=== PATIENT | male | born 1975 | race Caucasian/White ===

== ENCOUNTER 2020-09-14 09:07 | Emergency (ER) | payer OTHER, SELFPAY ==
[2020-09-14 09:16] VITALS: BP 157/92; PULSE 105; RESP 16; TEMP 36.8; O2SAT 99
== END 2020-09-14 09:20 | disposition left against medical advice (07) ==
LOC: EXPBETH 09:14
PROVIDERS: Emergency Provider Nurse Practitioner
DX: Z53.21 Procedure and treatment not carried out due to patient leaving prior to being seen by health care provider (principal)
CPT/HCPCS: 99199

== ENCOUNTER 2024-04-02 13:18 | Emergency (ER) | payer OTHER, SELFPAY ==
[2024-04-02 13:29] VITALS: BP 152/86; PULSE 111; RESP 16; TEMP 36.6; O2SAT 99
--- NOTE | 2024-04-02 14:16 | ED.GENADULT ---
HPI - General Adult General Chief complaint: Urogenital-Male Stated complaint: STD Test Time Seen by Provider: 04/02/24 14:16 Source: patient, RN notes reviewed and old records reviewed Mode of arrival: ambulatory Limitations: no limitations History of Present Illness HPI narrative: 48-year-old male to Express Care requesting STI testing. Patient states that his partner informed him yesterday that she tested positive for Trichomonas. Patient denies dysuria, penile discharge, fever, abdominal pain, scrotal pain, any other complaint at this time. Patient in no acute distress. Related Data Allergies Allergy/AdvReac Type Severity Reaction Status Date / Time No Known Allergies Allergy Verified 04/02/24 14:27 Review of Systems Review of Systems: All systems reviewed & are unremarkable except as noted in HPI and below Constitutional: Constitutional: Reports no additional constitutional complaints Eyes: Eyes: Reports no additional eye complaints ENT: Reports system reviewed and no additional complaints, except as documented Cardiovascular: Cardiovascular: Reports no additional cardiovascular complaints, Denies chest pain and Denies dyspnea Respiratory: Respiratory: Reports no additional respiratory complaints, Denies cough and Denies dyspnea Genitourinary: Genitourinary: Reports as per HPI, Denies hematuria, Denies difficulty with ejaculations, Denies genital lesions, Denies genital pain, Denies dysuria, Denies flank pain, Denies penile discharge, Denies testicular pain, Denies urinary frequency, Denies urinary hesitancy and Denies urinary urgency Musculoskeletal: Musculoskeletal: Reports no additional musculoskeletal complaints Neurologic: Reports system reviewed and no additional complaints, except as documented Psychiatric: Psychiatric: Reports no additional psychiatric complaints PMFSH Comments At the time of my signature, I reviewed and agree with the nursing past medical, surgical, social, and family history. There is no relevant family history pertinent to the patient complaint. Exam Const: General: cooperative, healthy appearing, comfortable, no acute distress, alert and well nourished Nutritional Appearance: well nourished Orientation/consciousness: patient oriented x3 Limitations: no limitations HENMT: Head: normal to inspection Ears: external ears normal Face/Nose/Sinus: Normal external nose present, Normal nares present, normal facial exam, No erythema and No edema Face and sinus: normal facial exam, no erythema and no edema Mouth: Yes Normal oral and palatal mucosa present Eyes: General: appearance normal, both eyes and all related structures Neck: Neck: normal visual inspection, full ROM and no meningeal signs Lymphatic: no lymphadenopathy noted and no lymphedema noted Chest: Chest palpation & inspection: normal inspection of the chest Resp: Effort & Inspection: normal respiratory effort and able to speak in complete sentences Cardio: Jugular venous distension: no JVD Rate: regular rate Rhythm: regular rhythm Back/Spine/Pelvis: Cervical Spine: cervical ROM normal Skin: General skin exam: normal color, no rashes or lesions noted and turgor normal Neuro: General: patient oriented x3, gait normal, moves all extremities and no meningeal signs Speech: normal speech Gait exam (Neuro): Normal gait present Extrem: General: normal to inspection and full ROM Psych: Appearance: grossly normal and well kempt Course Course Emergency Course: Some parts of this dictation were generated by voice recognition software and may contain typographical and/or grammatical inaccuracies. Level of Care: Express Care Visit Vital Signs Vital signs: Vital Signs Temperature 36.6 C 04/02/24 13:29 Pulse Rate 111 H 04/02/24 13:29 Respiratory Rate 16 04/02/24 13:29 Blood Pressure 152/86 H 04/02/24 13:29 Pulse Oximetry 99 04/02/24 13:29 Oxygen Delivery Room Air 04/02/24 13:29 Temperatur
[2024-04-02 20:04] LABS: Trichomonas Vag PCR NOT DETECTED (NOT DETECTE)
[2024-04-02 20:28] LABS: Chlamydia trachomatis NOT DETECTED (NOT DETECTE); Neisseria gonorrhoeae PCR NOT DETECTED (NOT DETECTE)
== END 2024-04-02 14:34 | disposition home or self-care (01) ==
PROVIDERS: Emergency Provider Nurse Practitioner Family; PCP Internal Medicine Geriatric Medicine
DX: Z20.2 Contact with and (suspected) exposure to infections with a predominantly sexual mode of transmission (principal); K21.9 Gastro-esophageal reflux disease without esophagitis; E11.9 Type 2 diabetes mellitus without complications
CPT/HCPCS: 87491; 87591; 87661; 99213; G0463

== ENCOUNTER 2025-01-21 20:19 | Emergency (ER) | payer OTHER, SELFPAY ==
--- NOTE | ~2025-01-21 | XR_ITS ---
XR hand RT min 3V Ordering provider: Jabari Marin MD History: . index and ring finger injury . Comparison: None. FINDINGS: BONES: Fracture in the tip of the distal phalanx of the second finger. JOINT SPACES: Osteoarthritic changes of the first carpometacarpal joint. SOFT TISSUES: Soft tissue swelling over the distal phalanx of the second finger. IMPRESSION: Fracture of the distal phalanx of the second finger Reviewed, dictated and finalized at location A.
[2025-01-21 20:20] VITALS: BP 179/99; PULSE 100; RESP 20; TEMP 36.4; O2SAT 98
--- OUTSIDE RECORDS SUMMARY | 2025-01-21 20:21 | XMS_ITS | Referral Summary ---
Author Organization [facility] Address [address] [place] [address] Care Team Providers Care Wire Inserter Name Role Phone Darin Hopson MD Primary Care Provider + Encounters Date Type Department Care Team Description 12/31/2024 12:30 PM CDT Lab [address] [id number] from Last 3 Months Allergies No known active allergies Medications omeprazole (PriLOSEC) 20 mg capsule Take 1 capsule (20 mg total) by mouth daily Active alcohol swabs pads, medicated Test daily before all meals/snacks and once before bedtime. 1 each 0 Active BD Insulin Syringe Ultra-Fine 1 mL 31 gauge x 5/16 syringe 1 Package as needed (blood sugar) 1 each 0 Active ibuprofen (ADVIL,MOTRIN) 600 mg tablet Take 1 tablet (600 mg total) by mouth every 8 (eight) hours as needed for pain 21 tablet 1 Active escitalopram (LEXAPRO) 20 mg tablet Take 20 mg by mouth daily 1 Active Ozempic 1 mg/dose (2 mg/1.5 mL) pen injector injection Inject 2 mg under the skin once a week Sundays 1 Active metFORMIN (GLUCOPHAGE) 1,000 mg tablet TAKE 1 (ONE) TABLET BY MOUTH 2 TIMES DAILY REASONS: TYPE 2 DIABETES 2 Active Ozempic 2 mg/dose (8 mg/3 mL) pen injector injection Inject 2 mg under the skin once a week 3 Active acetaminophen- codeine (TYLENOL with CODEINE #3) 300-30 mg per tabletIndicati ons:Acute right otitis media,Acute infective otitis externa of right ear Take 1-2 tablets by mouth every 6 (six) hours as needed for pain P.r.n. pain not relieved by naproxen alone. Take with food. Collaborating physician Cruz Cain MD 10 tablet 3 Active Additional Information Patient not taking.Reported on 02/23/2024 neomycin-polym yxin-HC (CORTISPORIN) 3.5-10,000-1 mg/mL-unit/mL- % otic suspensionIndi cations:Acute infective otitis externa of right ear Administer 4 drops into the right ear 4 (four) times a day Collaborating physician Cruz Cain MD 10 mL 1 3 Active Additional Information Patient not taking.Reported on 02/23/2024 naproxen (NAPROSYN) 500 mg tablet Take 1 tablet (500 mg total) by mouth 2 (two) times a day with meals 30 tablet 4 Active Additional Information Patient not taking.Reported on 02/23/2024 lidocaine (LIDODERM) 5 % Place 1 patch on the skin daily for 14 days Remove & discard patch within 12 hours or as directed by MD. 14 patch 4 Active methocarbamoL (ROBAXIN) 500 mg tablet Take 1 tablet (500 mg total) by mouth 2 (two) times a day 20 tablet 4 Active Additional Information Patient not taking.Reported on 02/23/2024 HYDROcodone-ac etaminophen (NORCO) 5-325 mg per tabletIndicati ons:Pain Take 1 tablet by mouth every 6 (six) hours as needed for pain 12 tablet 4 Active Active Problems Problem Noted Date Diagnosed Date Acute right otitis media 05/14/2023 Acute infective otitis externa of right ear 04/17 Sebaceous cyst 02/25/2022 Overview (02/25/2022): Added automatically from request for surgery [id number] Pyogenic inflammation of bone 05/07/2021 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 The patient on review elected undergo a cortisone injection today and tolerated the procedure well. He may find Voltaren gel helpful is a counter measure for inflammation locally the. He should avoid for mattresses as well. Degeneration of lumbar intervertebral disc 03/15 Assessment & Plan (03/15/2021 11:24 AM CDT): Patient has narrowing the L5-S1 disc space which is not uncommon. He does not have radiculopathy or myelopathy. The patient may need further workup if he develops progressive pain numbness loss of bowel or bladder function. For the time being the patient should avoid heavy lifting and may find a back support helpful. Nondisplaced fracture (avuls ion) of medial epicondyle of left humerus, initial encounter for closed fracture 05/18/2020 Asthma 03/29/2013 Attention-deficit hyperactivity disorder 013 Bipolar I disorder, most recent episode depresse d 03/29/2013 Generalized anxiety disorder 03/29/2013 Persistent insomnia 03/29/2013 Social History Tobacco Use Types Packs/Day Years Used Date Smoking Tobacco: Never Smokeless Tobacco: Never Alcohol Use Standard Drinks/Week Comments Not Currently 0 (1 standard drink = 0.6 oz pur e alcohol) AUDIT-C Answer Date Recorded Q1: How often do you have a drink containing alc ohol? Never 03/07/2022 Average Number of Drinks Not on file 022 Frequency of Binge Drinking Not on file 02/14 Overall Financial Resource Strain (CARDIA) Answe r Date Recorded How hard is it for you to pa y for the very basics like food, housing, medical care, and heating? Not hard at all 05/08/2021 Hunger Vital Sign Answer Date Recorded Within the past 12 months, y ou worried that your food would run out before you got the money to buy more. Never true 05/08/20 21 Within the past 12 months, t he food you bought just didn't last and you didn't have money to get more. Never true 05/08/2021 PRAPARE - Transportation Answer Date Re corded In the past 12 months, has l ack of transportation kept you from medical appointments or from getting medications? No 04/16 In the past 12 months, has l ack of transportation kept you from meetings, work, or from getting things needed for daily living? No 05/08/2021 Personal Safety Answer Date Recorded Have you ever been in or are you currently in a harmful physical or emotional relationship or is someone making you feel afraid or unsafe? Denies 03/10/2024 Sex and Gender Information Value Date Recorded Sex Assigned at Not on file Legal Sex Male 1:21 PM [employer] Gender Identity Not on file Sexual Orientation Not on file Last Filed Vital Signs Vital Sign Reading Time Taken Comments Blood Pressure 163/109 03/11/2024 1:24 AM CDT Pulse 102 03/11/2024 1:24 AM CDT Temperature 37.2 C (98.9 F) 03/10/2024 7:30 PM CDT Respiratory Rate 18 03/10/2024 7:30 PM CDT Oxygen Saturation 96% 03/11/2024 1:24 AM CDT Inhaled Oxygen Concentration - - Weight 104.3 kg (230 lb) 03/10/2024 7:30 PM CDT Height 195.6 cm (6' 5 ) 03/10/2024 7:30 PM CDT Body Mass Index 27.27 03/10/2024 7:30 PM CDT Plan of Treatment Not on file Procedures Procedure Name Priority Date/Time Associated Diagnosis Comments EGFR Routine 12/31/2024 12:31 PM CDT DIFFERENTIAL AUTO Routine 12/31/2024 12: 31 PM CDT VITAMIN D 25 HYDROXY Routine 12/31/2024 12:31 PM CDT TSH Routine 12/31/2024 12:31 PM CDT TOTAL TESTOSTERONE Routine 12/31/2024 12 :31 PM CDT HEMOGLOBIN A1C Routine 12/31/2024 12:31 PM CDT CBC WITH AUTO DIFFERENTIAL Routine 12/31/2024 12:31 PM CDT LIPID PANEL Routine 12/31/2024 12:31 PM CDT COMPREHENSIVE METABOLIC PANEL Routine 12/31/2024 12:31 PM CDT URINALYSIS, MACROSCOPIC Routine 12/31/2024 12:31 PM CDT from Last 3 Months Results * eGFR (12/31/2024 12:31 PM CDT) eGFR >90 >=60 mL/min/1. 73 m2 Comment: Interpretive Data Reference Interval Normal >/= 90 mL/min/1.73m2 Mildly decreased* 60 - 89 mL/min/1.73m2 Mildly to moderately decreased 45 - 59 mL/min/1.73m2 Moderately to severely decreased 30 - 44 mL/min/1.73m2 Severely decreased 15 - 29 mL/min/1.73m2 Kidney Failure < 15 mL/min/1.73m2 *Relative to young adult level Estimated glomerular filtration rate is determined by the 2020 CKD-EPI equation recommended by the National Kidney Foundation (A Unifying Approach to GFR Estimation: Recommendations of the NKF-ASK Task Force on Reassessing the Inclusion of Race in Diagnosing Kidney Disease, JASN 2020). The CKD-EPI equation should not be used for patients with unstable renal function and has not been validated in children and those over 70. Current interpretive data was last reviewed 2021. Blood 12/31/2024 12:3 1 PM CDT 12/31/2024 6:58 PM CDT us Darin Hopson MD LAB BLOOD ORDERABLES Fin al Result [facility] [id number] [address] Department [place] [address] * Differential, auto (12/31/2024 12:31 PM CDT) Neutrophil abs 4.89 1.50 - 6.50 K/cumm Imm gran abs 0.02 0.00 - 0.10 K/cumm [facility] Lymphocyte abs 0.92 0.80 - 3.30 K/cumm [facility] Monocyte abs 0.55 0.20 - 0.80 K/cumm [facility] Eosinophil abs 0.10 0.00 - 0.50 K/cumm [facility] Basophil abs 0.05 0.00 - 0.10 K/cumm [facility] Neutrophil pct 74.9 % [facility] Comment: Interpretive Data Percent cell count reference ranges are not reported, since discordance with absolute values may lead to misinterpretation of CBC data. Current Interpretive Data was last revised on 2017. Imm gran pct 0.3 % [facility] Comment: Interpretive Data Percent cell count reference ranges are not reported, since discordance with absolute values may lead to misinterpretation of CBC data. Current Interpretive Data was last revised on 2017. Lymphocyte pct 14.1 % [facility] Comment: Interpretive Data Percent cell count reference ranges are not reported, since discordance with absolute values may lead to misinterpretation of CBC data. Current Interpretive Data was last revised on 2017. Monocyte pct 8.4 % [facility] Comment: Interpretive Data Percent cell count reference ranges are not reported, since discordance with absolute values may lead to misinterpretation of CBC data. Current Interpretive Data was last revised on 2017. Eosinophil pct 1.5 % [facility] Comment: Interpretive Data Percent cell count reference ranges are not reported, since discordance with absolute values may lead to misinterpretation of CBC data. Current Interpretive Data was last revised on 2017. Basophil pct 0.8 % [facility] Comment: Interpretive Data Percent cell count reference ranges are not reported, since discordance with absolute values may lead to misinterpretation of CBC data. Current Interpretive Data was last revised on 2017. Blood 12/31/2024 12:3 1 PM CDT 12/31/2024 12:31 PM CDT Darin Hopson MD LAB BLOOD ORDERABLES Fin al Result Performing Organization Address City/State/[facility] Co de Phone Number CERKRYSTA SHI [address] [address] Department [place] [address] * (ABNORMAL) Urinalysis, macroscopic Urine (12/31/2024 12:31 PM CDT) Color, ur Yellow Yellow Clarity, ur Clear Clear [facility] Specific gravity, ur 1.024 1.003 - 1.030 [facility] pH, urine 5.5 [facility] Comment: Interpretive Data U rine pH is affected by diet, medications, systemic acid-base disturbances, and renal tubular function. pH may affect urinary stone formation. For example, urine pH below 6.0 may help reduce the tendency for calcium phosphate stones and pH greater than 6.0 may reduce the tendency for uric acid stone formation. Source: [facility] Current Interpretive Data was last revised on 2017 Protein, ur ql Negative Negative [facility] Glucose, ur ql 4+(A) Negative [facility] Ketones, ur 1+(A) Negative [facility] Bilirubin, ur Negative Negative [facility] Blood, ur Negative Negative [facility] Urobilinogen, ur <2.0 <2.0 mg/dL [facility] Nitrite, ur Negative Negative [facility] Leukocyte esterase, ur Negative Negative [facility] Urine 12/31/2024 12:3 1 PM CDT 12/31/2024 12:32 PM CDT us Darin Hopson MD LAB MICROBIOLOGY - GENER AL ORDERABLES Final Result Performing Organization Address [facility] de Phone Number [facility] SHI [phone] [address] Department [place] [address] * CBC with auto differential (12/31/2024 12:31 PM CDT) WBC 6.53 3.80 - 9.90 K/cumm Hgb 16.9 13.0 - 17.5 g/dL [facility] Hct 50.0 38.9 - 50.3 % [facility] Plt 285 150 - 400 K/cumm [facility] MPV 9.4 9.1 - 12.3 fL [facility] RBC 5.27 4.30 - 5.80 M/cumm [facility] MCV 94.9 81.3 - 96.4 fL [facility] MCH 32.1 27.1 - 33.3 pg [facility] MCHC 33.8 32.3 - 35.7 g/dL [facility] RDW CV 12.4 11.1 - 14.9 % [facility] RDW SD 42.9 35.7 - 48.1 fL [facility] NRBC abs 0.00 0.00 - 0.01 K/cumm [facility] Blood 12/31/2024 12:3 1 PM CDT 12/31/2024 12:31 PM CDT Darin Hopson MD LAB BLOOD ORDERABLES Fin al Result Performing Organization Address [facility] Co de Phone Number [facility] SHI [phone] [address] [facility] [place] [address] * (ABNORMAL) Vitamin D 25 hydroxy (12/31/2024 12:31 PM CDT) Vitamin D 25-OH 24(L) 30 - 80 ng/mL Blood 12/31/2024 12:3 1 PM CDT 12/31/2024 12:32 PM CDT Darin Hopson MD LAB BLOOD ORDERABLES Fin al Result Performing Organization Address [facility] Co de Phone Number LYNNE YURIDIA [address] [address] [facility] [place] [address] * TSH (12/31/2024 12:31 PM CDT) Thyroid Stimulating Hormone 1.35 0.30 - 4.20 mcIUnit/mL Blood 12/31/2024 12:3 1 PM CDT 12/31/2024 12:31 PM CDT Darin Hopson MD LAB BLOOD ORDERABLES Fin al Result Performing Organization Address [facility] Co de Phone Number LYNNE [address] [address] [facility] [place] [address] * Total testosterone (12/31/2024 12:31 PM CDT) Testosterone 311 249 - 836 ng/dL Blood 12/31/2024 12:3 1 PM CDT 12/31/2024 12:31 PM CDT Darin Hopson MD LAB BLOOD ORDERABLES Fin al Result Performing Organization Address [facility] Phone Number L[facility] [phone] [address] [facility] [place] [address] * (ABNORMAL) Hemoglobin A1c (12/31/2024 12:31 PM CDT) Hgb A1C 10.9(H) 4.0 - 5.6 % Estimated Average Glucose 266 mg/dL [facility]I Comment: The ADA recommends reporting an estimated Average Glucose (eAG) with all Hemoglobin A1c results using the equation derived from a study of 507 normal and diabetic adults. Minority populations were underrepresented and children were not included. (Diabetes Care 31:0235-6073, 2008). The eAG is not equivalent to a fasting glucose. Blood 12/31/2024 12:3 1 PM CDT 12/31/2024 12:31 PM CDT Darin Hopson MD LAB BLOOD ORDERABLES Fin al Result Performing Organization Address [facility] de Phone Number L[facility]NE YURIDIA [phone] [address] [facility] [place] [address] * Lipid panel (12/31/2024 12:31 PM CDT) Cholesterol 187 30 - 199 mg/dL Comment: Interpretive Data Ages < or = 19 years Acceptable: <170 mg/dL Borderline high: 170-199 mg/dL High: >or= 200 mg/dL Ages > or = 20 years Desirable: <200 mg/dL Borderline high: 200-239 mg/dL High: >or= 240 mg/dL Literature References: 1. Expert Panel on Integrated Guidelines for Cardiovascular Health and Risk Reduction in Children and Adolescents. Pediatrics 2011;128:S213 2. NCEP Expert Panel. Circulation 2004;110:227 Current Interpretive Data was last revised on 2018. Triglycerides 87 <=149 mg/dL [facility] Comment: Interpretive Data Ages < or = 9 years Acceptable: <75 mg/dL Borderline high: 75-99 mg/dL High: >or= 100 mg/dL Ages 10 to 20 years Acceptable: <90 mg/dL Borderline high: 90-129 mg/dL High: >or= 130 mg/dL Ages > or = 20 years Desirable: <150 mg/dL Borderline high: 150-199 mg/dL High: 200-499 mg/dL Very high: >or= 499 mg/dL Literature References: 1. Expert Panel on Integrated Guidelines for Cardiovascular Health and Risk Reduction in Children and Adolescents. Pediatrics 2011;128:S213 2. NCEP Expert Panel. Circulation 2004;110:227 Current Interpretive Data was last revised on 2018. HDL 61 >=40 mg/dL [facility] Comment: Interpretive Data Ages < or = 19 years Acceptable: >45 mg/dL Borderline low: 40-45 mg/dL Low: <40 mg/dL Ages > or = 20 years Desirable: >or= 60 mg/dL Low: <40 mg/dL Literature References: 1. Expert Panel on Integrated Guidelines for Cardiovascular Health and Risk Reduction in Children and Adolescents. Pediatrics 2011;128:S213 2. NCEP Expert Panel. Circulation 2004;110:227 Current Interpretive Data was last revised on 2018. LDL, calculated 110 <=129 mg/dL [facility] Comment: Interpretive Data Ages < or = 19 years Acceptable: <110 mg/dL Borderline high: 110-129 mg/dL High: >or= 130 mg/dL Ages > or = 20 years Optimal: <100 mg/dL Near optimal: 100-129 mg/dL Borderline high: 130-159 mg/dL High: >160 mg/dL Calculated using the Long LDL-C estimating equation. This equation was implemented on 2024. Prior to this date LDL-C was estimated using the Friedewald equation. Literature References: 1. Expert Panel on Integrated Guidelines for Cardiovascular Health and Risk Reduction in Children and Adolescents. Pediatrics 2011;128:S213 2. NCEP Expert Panel. Circulation 2004;110:227 3. Alves M et al. COURTNEY Cardiol. 2019January 13;5(5):540-548. doi: 10.1001/jamacardio.2020.0013 Current Interpretive Data was last revised on 2024. Non-HDL Cholesterol 126 mg/dL [facility] Comment: Interpretive Data Ages < or = 19 years Acceptable: <120 mg/dL Borderline high: 120-144 mg/dL High: >145 mg/dL Ages > or = 20 years When triglycerides are >200 mg/dL, Non-HDL cholesterol is a secondary target of therapy with treatment goals that are 30 mg/dL greater than the LDL cholesterol target. Literature References: 1. Expert Panel on Integrated Guidelines for Cardiovascular Health and Risk Reduction in Children and Adolescents. Pediatrics 2011;128:S213 2. NCEP Expert Panel. Circulation 2004;110:227 Current Interpretive Data was last revised on 2018. Chol/HDL ratio 3 [facility] Blood 12/31/2024 12:3 1 PM CDT 12/31/2024 12:31 PM CDT us Darin Hopson MD LAB BLOOD ORDERABLES Fin al Result [facility] [address] [address] Department [place] [address] * (ABNORMAL) Comprehensive metabolic panel (12/31/2024 12:31 PM CDT) Sodium 134(L) 135 - 145 mmol/L Potassium, pl 4.2 3.3 - 4.9 mmol/L [facility] Chloride 99 97 - 110 mmol/L [facility] CO2 22 22 - 32 mmol/L [facility] Anion gap 13 2 - 15 mmol/L [facility] BUN 10 6 - 25 mg/dL [facility] Creatinine 0.60(L) 0.80 - 1.30 mg/dL [facility] Glucose 289(H) 70 - 199 mg/dL [facility] Comment: Interpretive Data Fasting glucose >/= 126 mg/dl is diagnostic for diabetes. Fasting is defined as no caloric intake for at least 8 hours. Fasting glucose between 100 mg/dl to 125 mg/dl is diagnostic of prediabetes. In a patient with classic symptoms of hyperglycemia or hyperglycemic crisis, a random glucose >/= 200 mg/dl is diagnostic for diabetes. In the absence of unequivocal hyperglycemia, results should be confirmed by repeat testing. The classification and Diagnosis of Diabetes Diabetes Care 202; 46: S19-S40. Current interpretive data was last revised 2022. Calcium 9.7 8.5 - 10.3 mg/dL [facility] Bilirubin, total 1.0 0.1 - 1.2 mg/dL [facility] Protein, pl 7.1 6.5 - 8.5 g/dL [facility] Albumin 4.3 3.5 - 5.0 g/dL [facility] Alk phos 50 40 - 130 Units/L [facility] ALT 30 7 - 55 Units/L [facility] AST 23 10 - 50 Units/L [facility] Blood 12/31/2024 12:3 1 PM CDT 12/31/2024 12:31 PM CDT Darin Hopson MD LAB BLOOD ORDERABLES [facility] al Result [facility] [address] [address] Department of Laboratories [place] [phone] from Last 3 Months Insurance [employer] SIG [id number] [place] [phone] [place] [address] Advance Directives For more information, please contact: [phone] * Full Code (Latest Code Status on File) Date Activated Date Inactivated Comments 05/08/2021 2:43 AM 05/09/2021 6:43 PM Care Teams Wire Inserter Relationship Specialty [place] [address] [address] [facility] [place] [address] PCP - General 12/26/16
--- OUTSIDE RECORDS SUMMARY | 2025-01-21 20:21 | XMS_ITS | Clinical Summary ---
Author Organization [facility] Address [address] [place] [id number] Care Team Providers Care Crime Scene Photographer Name Role Phone Unavailable Primary Care Provider Unavailabl e Encounters Date Type Department Care Team Description 12/28/2024 External Device Data [facility] ABSTRACTION Provider, Abstract 11/20/2024 External Device Data [facility]STRA[facility] Provider, Abstract 11/19/2024 External Device Data [facility] Provider, Abstract 11/09/2024 External Device Data [facility]STRACTION Provider, Abstract from Last 3 Months Social History Tobacco Use Types Packs/Day Years Used Date Smoking Tobacco: Never Assessed Sex and Gender Information Value Date Recorded Sex Assigned at Not on file Legal Sex Male 1:17 PM CDT Gender Identity Not on file Sexual Orientation Not on file Plan of Treatment Health Maintenance Due Date Last Done Comments DIABETES ANNUAL RETINAL EXAM 1995 DIABETES MICROALBUMIN ANNUAL SCREEN 1995 LDL CHOLESTEROL ANNUAL 1995 DTAP/TDAP/TD VACCINES (1 - Tdap) 1996 HEPATITIS B VACCINES (1 of 3 - 19+ 3-dose series) 1996 DIABETES ANNUAL FOOT EXAM 04/05/2022 04/05/2021 COLORECTAL SCREENING 2022 Colorectal Cancer Screening 2022 FIT-DNA Q 3 years 2022 FIT/FOBT Q 1 year 2022 Flex Sig/CT Colonography Q 5 years 2022 INFLUENZA VACCINE (#1) 2024 DIABETES HBA1C Q 6 MONTHS 07/14/2024 01/13/2024, Insurance [employer] TRUST
--- OUTSIDE RECORDS SUMMARY | 2025-01-21 20:21 | XMS_ITS | Clinical Summary ---
Author Organization [facility] Address [address] [place] [address] Phone Care Team Providers Care Kelp Cutter Name Role Phone Darin Huizar MD Primary Care Provider [phone] Allergies No known active allergies Medications Omeprazole (PRILOSEC PO)Indications: Acid Reflux Take 20 mg by mouth every morning. Indications: Acid Reflux Active glipiZIDE (GLUCOTROL XL) 5 MG TABLET SR 24 HR Take 1 Tablet by mouth daily (with breakfast). 90 Tablet 3 11/24/2024 Active metFORMIN (GLUCOPHAGE) 1000 MG TabletIndicatio ns:Diabetes Mellitus Take 1 Tablet by mouth 2 times daily. Indications: Diabetes 60 Tablet 3 11/23/2024 Active lisinopril (PRINIVIL, ZESTRIL) 10 MG Tablet Take 1 Tablet by mouth daily. 90 Tablet 11/23/2024 Active Active Problems Problem Noted Date Diagnosed Date Tonsillitis 11/21/2024 Diabetic ketoacidosis 11/21/2024 Uncontrolled type 2 diabetes mellitus with hyper glycemia 11/21/2024 Dehydration 11/21/2024 Hypomagnesemia 11/21/2024 GERD (gastroesophageal reflux disease) Encounters Date Type Department Care Team Description 11/28/2024 8:55 AM CDT - 11/28/2024 10:35 AM CDT Emergency [facility] Emergency [address] [place] [address] Naveed Hendricks MD Hyperglycemia Discharge Disposition: Discharged to home or Selfcare 11/28/2024 Travel 11/20/2024 10:31 PM TIMBER TRIMMER - 11/23/2024 1:00 PM CDT Hospital Encounter [facility] Intensive Care [address] [place] [address] John Henry MD Krishna, Naveen Kumar, MD Patel, Satyen V, MD Dianati, Behfar, MD Diabetic ketoacidosis (HCC) Discharge Disposition: Discharged to home or Selfcare 11/20/2024 Travel 11/19/2024 11:12 PM TIMBER TRIMMER - 11/20/2024 2:50 AM TIMBER TRIMMER Emergency [facility] Emergency [address] [place] [address] John Henry MD Acute infective tonsillitis Discharge Disposition: Left Against Medical Advice 11/19/2024 Travel from Last 3 Months Social History Tobacco Use Types Packs/Day Years Used Date Smoking Tobacco: Never Smokeless Tobacco: Never Alcohol Use Standard Drinks/Week Comments No 0 (1 standard drink = 0.6 oz pur e alcohol) [facility] Utilities Answer Date Recorded In the past 12 months has th e electric, gas, oil, or water company threatened to shut off services in your home? Patient declined 11/21/2024 Hunger Vital Sign Answer Date Recorded Within the past 12 months, y ou worried that your food would run out before you got the money to buy more. Patient declined Within the past 12 months, t he food you bought just didn't last and you didn't have money to get more. Patient declined 05/2025 PRAPARE - Transportation Answer Date Re corded In the past 12 months, has l ack of transportation kept you from medical appointments or from getting medications? Patient declined 11/21/2024 In the past 12 months, has l ack of transportation kept you from meetings, work, or from getting things needed for daily living? Patient declined 11/21/2024 Housing Stability Vital Sign Answer Anjel e Recorded In the last 12 months, was t here a time when you were not able to pay the mortgage or rent on time? Yes 11/22/19 25 In the past 12 months, how m any times have you moved where you were living? 1 11/21/2024 At any time in the past 12 m [facility], were you homeless or living in a prison (including now)? Patient declined 11/21/2024 Sex and Gender Information Value Date Recorded Sex Assigned at Not on file Legal Sex Male 10:39 PM CDT Gender Identity Not on file Sexual Orientation Not on file Last Filed Vital Signs Vital Sign Reading Time Taken Comments Blood Pressure 142/96 11/28/2024 10:30 AM CDT Pulse 93 11/28/2024 10:30 AM CDT Temperature 36.8 C (98.2 F) 11/28/2024 9:00 AM CDT Respiratory Rate 16 11/28/2024 9:00 AM CDT Oxygen Saturation 95% 11/28/2024 10: 30 AM CDT Inhaled Oxygen Concentration - - Weight 107.1 kg (236 lb 1.8 oz) 11/28/2024 9:00 AM CDT Height 195.6 cm (6' 5 ) 11/28/2024 9:00 AM CDT Body Mass Index 28 11/28/2024 9:00 AM CDT Plan of Treatment Health Maintenance Due Date Last Done Comments Diabetes: Eye Exam 1977 Diabetes: Foot Exam 1977 Hepatitis C Virus (HCV) Screening 1977 TdaP Immunization 1977 Hepatitis B Immunization (1 of 3 - 19+ 3-dose series) 1996 Pneumococcal Immunization Combined (1 of 2 - PCV) 1996 Colonoscopy 2022 Colorectal Cancer Screening 2022 Influenza Immunization (#1) 2024 SARS-COV-2 Immunization ( season) 2024 Diabetes: Hemoglobin A1c 05/24/2025 025, 05/26/2024, 04/05/2021 Diabetes: Nephropathy Screening 11/28/2025 11/28/2024, 11/20/2024, 11/20/2024, Additional history exists Respiratory Syncytial Virus (RSV) Immunization (Adult) (1 - 1-dose 75+ series) 2052 Meningococcal Immunization (ACWY) Aged Out No longer eligible based on patient's age to complete this topic Rotavirus Immunization Aged Out No lo nger eligible based on patient's age to complete this topic Procedures Procedure Name Priority Date/Time Associated Diagnosis Comments CBC WITH AUTO DIFFERENTIAL STAT 11/28/2024 9:35 AM CDT CMP (COMPREHENSIVE METABOLIC PANEL) STAT 11/28/2024 9:35 AM CDT COMPLETE BLOOD COUNT (CBC) WITH DIFF STAT 11/28/2024 9:35 AM CDT POCT GLUCOSE STAT 11/28/2024 9:08 AM CDT POCT GLUCOSE Routine 11/23/2024 7:42 AM CDT CBC WITH AUTO DIFFERENTIAL Routine 11/23/2024 4:08 AM CDT LIPID PANEL Routine 11/23/2024 4:08 AM CDT PHOSPHORUS (PO4) Routine 11/23/2024 4:08 AM CDT COMPLETE BLOOD COUNT (CBC) WITH DIFF Routine 11/23/2024 4:08 AM CDT BASIC METABOLIC PANEL W/ CALCIUM TOTAL Routine 11/23/2024 4:08 AM CDT MAGNESIUM (MG) Routine 11/23/2024 4:08 AM CDT RHYTHM STRIP 11/23/2024 12:00 AM CDT RHYTHM STRIP 11/23/2024 12:00 AM CDT POCT GLUCOSE Routine 11/22/2024 5:19 PM CDT POCT GLUCOSE Routine 11/22/2024 1:35 PM CDT C PEPTIDE Timed 11/22/2024 9:57 AM CDT POCT GLUCOSE Routine 11/22/2024 9:13 AM CDT CBC WITH AUTO DIFFERENTIAL Routine 11/22/2024 4:52 AM CDT COMPLETE BLOOD COUNT (CBC) WITH DIFF Routine 11/22/2024 4:52 AM CDT BASIC METABOLIC PANEL W/ CALCIUM TOTAL Routine 11/22/2024 4:52 AM CDT PHOSPHORUS (PO4) Routine 11/22/2024 4:52 AM CDT MAGNESIUM (MG) Routine 11/22/2024 4:52 AM CDT RHYTHM STRIP 11/22/2024 12:00 AM CDT RHYTHM STRIP 11/22/2024 12:00 AM CDT RHYTHM STRIP 11/22/2024 12:00 AM CDT POCT GLUCOSE Routine 11/21/2024 10:22 PM CDT POCT GLUCOSE Routine 11/21/2024 4:24 PM CDT POCT GLUCOSE Routine 11/21/2024 12:03 PM CDT POCT GLUCOSE Routine 11/21/2024 10:20 AM CDT POCT GLUCOSE Routine 11/21/2024 9:26 AM CDT GROUP A STREP BY PCR Routine 11/21/2024 9:17 AM CDT POCT GLUCOSE Routine 11/21/2024 8:14 AM CDT BASIC METABOLIC PANEL W/ CALCIUM TOTAL Timed 11/21/2024 7:57 AM CDT PHOSPHORUS (PO4) STAT 11/21/2024 7:57 AM CDT MRSA NASAL PCR Routine 11/21/2024 7:57 AM CDT MRSA NASAL BY PCR Routine 11/21/2024 7:5 7 AM CDT CBC WITH AUTO DIFFERENTIAL Routine 11/21/2024 7:56 AM CDT COMPLETE BLOOD COUNT (CBC) WITH DIFF Routine 11/21/2024 7:56 AM CDT POCT GLUCOSE Routine 11/21/2024 6:31 AM CDT POCT GLUCOSE Routine 11/21/2024 5:32 AM CDT POCT GLUCOSE STAT 11/21/2024 4:48 AM CDT UR KETONE QUAL STAT 11/21/2024 3:38 AM CDT HEMOGLOBIN A1C W/ ESTIMATED GLUCOSE STAT 11/21/2024 3:34 AM CDT PHOSPHORUS (PO4) STAT 11/21/2024 3:34 AM CDT MAGNESIUM (MG) STAT 11/21/2024 3:34 AM CDT BASIC METABOLIC PANEL W/ CALCIUM TOTAL Timed 11/21/2024 3:34 AM CDT TEST FOR ACETONE/KETONES STAT 11/21/2024 3:25 AM CDT POCT GLUCOSE STAT 11/21/2024 3:18 AM CDT BLOOD GASES, VENOUS W/ O2 SATURATION STAT 11/21/2024 1:41 AM TIMBER TRIMMER CULTURE, BLOOD STAT 11/21/2024 1:16 AM TIMBER TRIMMER LACTIC ACID (LACTATE) STAT 11/21/2024 1:12 AM TIMBER TRIMMER BLOOD GASES, PH VENOUS BLOOD STAT 11/21/2024 1:12 AM TIMBER TRIMMER CULTURE, BLOOD STAT 11/21/2024 1:12 AM TIMBER TRIMMER RHYTHM STRIP 11/21/2024 12:00 AM TIMBER TRIMMER RHYTHM STRIP 11/21/2024 12:00 AM TIMBER TRIMMER CRITICAL CARE Routine 11/20/2024 11:24 PM TIMBER TRIMMER GOLD TOP TUBE STAT 11/20/2024 10:52 PM TIMBER TRIMMER BLUE TOP TUBE STAT 11/20/2024 10:52 PM TIMBER TRIMMER CBC WITH AUTO DIFFERENTIAL STAT 11/20/2024 10:52 PM TIMBER TRIMMER EXTRA TUBES STAT 11/20/2024 10:52 PM TIMBER TRIMMER CMP (COMPREHENSIVE METABOLIC PANEL) STAT 11/20/2024 10:52 PM TIMBER TRIMMER COMPLETE BLOOD COUNT (CBC) WITH DIFF STAT 11/20/2024 10:52 PM TIMBER TRIMMER POCT GLUCOSE STAT 11/20/2024 2:[address] SOFT TISSUE NECK W CONTRAST Stat with Interpretation 11/20/2024 1:09 AM TIMBER TRIMMER GOLD TOP TUBE STAT 11/20/2024 12:04 AM TIMBER TRIMMER BLUE TOP TUBE STAT 11/20/2024 12:04 AM TIMBER TRIMMER CBC WITH AUTO DIFFERENTIAL STAT 11/20/2024 12:04 AM TIMBER TRIMMER EXTRA TUBES STAT 11/20/2024 12:04 AM TIMBER TRIMMER C-REACTIVE PROTEIN (CRP) QUANT STAT 11/20/2024 12:04 AM TIMBER TRIMMER ERYTHROCYTE SEDIMENTATION RATE (ESR) STAT 11/20/2024 12:04 AM TIMBER TRIMMER CMP (COMPREHENSIVE METABOLIC PANEL) STAT 11/20/2024 12:04 AM TIMBER TRIMMER COMPLETE BLOOD COUNT (CBC) WITH DIFF STAT 11/20/2024 12:04 AM TIMBER TRIMMER XR CHEST SINGLE VIEW PORTABLE STAT 11/19/2024 11:47 PM TIMBER TRIMMER GROUP A STREP BY PCR STAT 11/19/2024 11:21 PM TIMBER TRIMMER RSV,SARS-COV-2,INFL UENZA A&B BY PCR STAT 11/19/2024 11:21 PM TIMBER TRIMMER from Last 3 Months Results * (ABNORMAL) CBC with Auto Differential (11/28/2024 9:35 AM CDT) Only the most recent of6 resultswithin the time period is included. WBC 6.12 4.00 - 12.00 10(3)/mcL 11/28/2024 9:59 AM CDT [facility] RBC 4.83 4.40 - 5.80 10(6)/mcL 11/28/2024 9:59 AM CDT [facility] HEMOGLOBIN (HGB) 15.5 13.0 - 16.5 g/dL 11/28/2024 9:59 AM CDT [facility] HEMATOCRIT (HCT) 44.3 38.0 - 50.0 % 11/28/2024 9:59 AM CDT [facility] MCV 91.7 82.0 - 96.0 fL 11/28/2024 9:59 AM CDT [facility] MCH 32.1(H) 26.0 - 32.0 pg 11/28/2024 9:59 AM CDT [facility] MCHC 35.0 31.0 - 36.0 g/dL 11/28/2024 9:59 AM CDT [facility] PLATELET COUNT 327 140 - 440 10(3)/mcL 11/28/2024 9:59 AM CDT [facility] RDW 11.5(L) 11.8 - 15.5 % 11/28/2024 9:59 AM CDT [facility] MPV 8.6 8.0 - 12.6 fL 11/28/2024 9:59 AM CDT [facility] NEUTROPHILS 73.4(H) 40.0 - 68.0 % 11/28/2024 9:59 AM CDT [facility] LYMPHOCYTES 15.7(L) 19.0 - 49.0 % 11/28/2024 9:59 AM CDT [facility] MONOCYTES 8.5 3.0 - 13.0 % 11/28/2024 9:59 AM CDT [facility] EOSINOPHILS 1.6 0.0 - 8.0 % 11/28/2024 9:59 AM CDT [facility] BASOPHILS 0.8 0.0 - 1.0 % 11/28/2024 9:59 AM CDT [facility] ABSOLUTE NEUTROPHILS 4.49 1.40 - 5.30 10(3)/mcL 11/28/2024 9:59 AM CDT [facility] ABSOLUTE LYMPHOCYTES 0.96 0.90 - 3.30 10(3)/mcL 11/28/2024 9:59 AM CDT [facility] ABSOLUTE MONOCYTES 0.52 0.10 - 0.90 10(3)/[facility] 11/28/2024 9:59 AM CDT [facility] ABSOLUTE EOSINOPHIL 0.10 0.00 - 0.50 10(3)/[facility] 11/28/2024 9:59 AM CDT [facility] ABSOLUTE BASOPHILS 0.05 0.00 - 0.10 10(3)/[facility] 11/28/2024 9:59 AM CDT [facility] NRBC PER 100 WBC 0 11/29/19 25 9:59 AM CDT [facility] Blood Venipuncture / Unknown 11/28/2024 9:35 AM CDT 11/28/2024 9:50 AM CDT us Naveed Hendricks MD HEMATOLOGY ORDERABLES Machelle l Result [facility] [address] [place] [address] * (ABNORMAL) Comprehensive Metabolic Panel (Cmp) [id number] (11/28/2024 9:35 AM CDT) Only the most recent of3 resultswithin the time period is included. SODIUM 136 136 - 145 mmol/L 11/28/2024 10:13 AM CDT [facility] POTASSIUM 4.4 3.5 - 5.1 mmol/L 11/28/2024 10:13 AM CDT [facility] CHLORIDE 104 98 - 107 mmol/L 11/28/2024 10:13 AM CDT [facility] CO2, VENOUS 22 22 - 30 mmol/L 11/28/2024 10:13 AM CDT [facility] ANION GAP 14.4 <18.0 mmol/L 11/28/2024 10:13 AM CDT [facility] GLUCOSE 308(H) 70 - 99 mg/dL 11/28/2024 10:13 AM CDT [facility] BUN 10 9 - 21 mg/dL 11/28/2024 10:13 AM CDT [facility] CREATININE, BLOOD 0.84 0.70 - 1.30 mg/dL 11/28/2024 10:13 AM CDT [facility] BUN/CREATININE RATIO 12 12 - 20 ratio 11/28/2024 10:13 AM CDT [facility] TOTAL PROTEIN 6.6 6.0 - 8.0 g/dL 11/28/2024 10:13 AM CDT [facility] ALBUMIN 3.7 3.5 - 5.0 g/dL 11/28/2024 10:13 AM CDT [facility] A/G RATIO 1.3 1.0 - 2.2 11/28/2024 10:13 AM CDT [facility] CALCIUM 8.7 8.7 - 10.5 mg/dL 11/28/2024 10:13 AM CDT [facility] T BILI 0.5 0.2 - 1.2 mg/dL 11/28/2024 10:13 AM CDT [facility] SGOT (AST) 18 <43 U/L 11/28/2024 10:13 AM CDT [facility] SGPT (ALT) 26 <56 U/L 11/28/2024 10:13 AM CDT [facility] ALKALINE PHOSPHATASE 38(L) 40 - 150 U/L 11/28/2024 10:13 AM CDT [facility] GFR, ESTIMATED >60 >=60 11/28/2024 10:13 AM CDT [facility] Comment: Creatinine Clearance is the preferred criteria for selecting drug dose adjustments in renally impaired patients. The GFR is provided as additional pertinent clinical information. GFR is reported in mL/min/1.73 sq m. Calculation based on the Chronic Kidney Disease Epidemiology Collaboration (CKD- EPI) equation refit without adjustment for race. GFR, EST. >60 >=60 025 10:13 AM CDT [facility] GFR, EST. NONAFRICAN >60 >=60 11/28/2024 10:13 AM CDT [facility] Blood Venipuncture / Unknown 11/28/2024 9:35 AM CDT 11/28/2024 9:50 AM CDT us Naveed Hendricks MD CHEMISTRY ORDERABLES Final Result Performing Organization Address City/[facility]/ZIP Co de Phone Number [facility] [address] [place] [address] * (ABNORMAL) POCT Glucose (11/28/2024 9:08 AM CDT) Only the most recent of16 resultswithin the time period is included. GLUCOSE,BEDSID E POCT 266(H) 70 - 99 mg/dL 11/28/2024 9:14 AM CDT [facility] Comment:Patient RN Performed Blood 11/28/2024 9:08 AM CDT 11/28/2024 9:13 AM CDT us None Provider POINT OF CARE TESTING Final Resu lt [facility] [address] [place] [address] * Phosphorus (PO4), Serum (11/23/2024 4:08 AM CDT) Only the most recent of4 resultswithin the time period is included. PHOSPHORUS 3.2 2.5 - 4.5 mg/dL 11/23/2024 4:50 AM CDT [facility] Blood Venipuncture / Unknown 11/23/2024 4:08 AM CDT 11/23/2024 4:18 AM CDT us Tanya Hackett MARBLE INSTALLER, MASTER SONAR TECHNICIAN CHEMISTRY ORDERABLES Machelle l Result Performing Organization Address City/[facility] Co de Phone Number [facility] [address] [place] [address] * Magnesium (Mg) (11/23/2024 4:08 AM CDT) Only the most recent of3 resultswithin the time period is included. MAGNESIUM 2.0 1.6 - 2.6 mg/dL 11/23/2024 4:50 AM CDT [facility] Comment: Specimen is hemolyzed. In vitro hemolysis could affect results. Clinical correlation advised. Blood Venipuncture / Unknown 11/23/2024 4:08 AM CDT 11/23/2024 4:18 AM CDT us Laureen Weaver MARBLE INSTALLER, MASTER SONAR TECHNICIAN CHEMISTRY ORDERABLES Final Result [facility] [address] [place] [address] * Lipid Panel (11/23/2024 4:08 AM CDT) CHOLESTEROL 147 <200 mg/dL 11/23/2024 9:32 AM CDT [facility] TRIGLYCERIDES 112 <150 mg/dL 11/23/2024 9:32 AM CDT [facility] HDL CHOLESTEROL 44 >40 mg/dL 9:32 AM CDT [facility] LDL 81 <130 mg/dL 11/23/2024 9:32 AM CDT [facility] VLDL 22 10 - 50 mg/dL 11/23/2024 9:32 AM CDT [facility] CHOL/HDL RATIO 3.3 0.0 - 4.4 11/23/2024 9:32 AM CDT [facility] NON-HDL CHOLESTEROL 103 <130 mg/dL 11/23/2024 9:32 AM CDT [facility] Blood Venipuncture / Unknown 11/23/2024 4:08 AM CDT 11/23/2024 4:18 AM CDT us Nhan Medrano MD CHEMISTRY ORDERABLES Final Res ult [facility] [address] [place] [address] * (ABNORMAL) BMP with Ca, Total (11/23/2024 4:08 AM CDT) Only the most recent of4 resultswithin the time period is included. SODIUM 139 136 - 145 mmol/L 11/23/2024 4:50 AM CDT [facility] POTASSIUM 3.7 3.5 - 5.1 mmol/L 11/23/2024 4:50 AM CDT [facility] CHLORIDE 108(H) 98 - 107 mmol/L 11/23/2024 4:50 AM CDT [facility] CO2, VENOUS 24 22 - 30 mmol/L 11/23/2024 4:50 AM CDT [facility] ANION GAP 10.7 <18.0 mmol/L 11/23/2024 4:50 AM CDT [facility] GLUCOSE 154(H) 70 - 99 mg/dL 11/23/2024 4:50 AM CDT [facility] BUN 9 9 - 21 mg/dL 11/23/2024 4:50 AM CDT [facility] CREATININE, BLOOD 0.66(L) 0.70 - 1.30 mg/dL 11/23/2024 4:50 AM CDT [facility] BUN/CREATININE RATIO 14 12 - 20 ratio 11/23/2024 4:50 AM CDT [facility] CALCIUM 8.9 8.7 - 10.5 mg/dL 11/23/2024 4:50 AM CDT [facility] GFR, ESTIMATED >60 >=60 11/23/2024 4:50 AM CDT [facility] Comment: Creatinine Clearance is the preferred criteria for selecting drug dose adjustments in renally impaired patients. The GFR is provided as additional pertinent clinical information. GFR is reported in mL/min/1.73 sq m. Calculation based on the Chronic Kidney Disease Epidemiology Collaboration (CKD- EPI) equation refit without adjustment for race. GFR, EST. >60 >=60 025 4:50 AM CDT [facility] GFR, EST. NONAFRICAN >60 >=60 11/23/2024 4:50 AM CDT [facility] Blood Venipuncture / Unknown 11/23/2024 4:08 AM CDT 11/23/2024 4:18 AM CDT us Laureen Weaver MARBLE INSTALLER, MASTER SONAR TECHNICIAN CHEMISTRY ORDERABLES Final Result [facility] [address] [place] [address] * RHYTHM STRIP (11/23/2024 12:00 AM CDT) Only the most recent of7 resultswithin the time period is included. 11/23/2024 us Provider Scan IMG ECG ORDERABLES Final Result RESULTING AGENCY * C Peptide (11/22/2024 9:57 AM CDT) [facility] C PEPTIDE 1.43 0.78 - 5.19 ng/mL 11/22/2024 5:40 PM [facility]T [facility] Venip[facility] / Unknown 11/22/2024 9:57 AM CDT 11/22/2024 10:03 AM CDT us Nhan Medrano MD CHEMISTRY ORDERABLES Final Res ult [facility] [address] [facility] [place] [address], * GROUP A STREP BY PCR (11/21/2024 9:17 AM CDT) Only the most recent of2 resultswithin the time period is included. [facility] GROUP A STREP BY PCR NOT DETECTED NOT DETECTED 11/21/2024 10:05 AM CDT [facility] Swab STRUCTURE OF ANTERIOR PORTION OF NECK / Unknown Non-Phlebotomy Collection / Unknown 11/21/2024 9:17 AM CDT 11/21/2024 9:40 AM CDT us Tremaine Muñoz MD MICROBIOLOGY - GENERAL ORDERA BLES Final Result Performing Organization Address City/[facility]/ZIP Co de Phone Number [facility] [address] [place] [address] * MRSA NASAL PCR (11/21/2024 7:57 AM CDT) [facility] MRSA PCR RESULT Negative Negative, Invalid 11/21/2024 9:11 AM CDT [facility] Other NASOPHARYNGEAL SWAB / Unknown Non-Phlebotomy Collection / Unknown 11/21/2024 7:57 AM CDT 11/21/2024 7:57 AM CDT us Cyrus العراقي MD MICROBIOLOGY - GENERAL O RDERABLES Final Result [facility] [address] [place] [address] * (ABNORMAL) Ur Acetone Qlt (11/21/2024 3:38 AM CDT) Pathologist [facility] URINE KETONES 150 mg/dL(A) Negative 11/21/2024 3:52 AM CDT [facility] MACRO ONLY PROCEDURE 11/21/2024 3:52 AM CDT [facility] Urine Non-Phlebotomy Collection / Unknown 11/21/2024 3:38 AM CDT 11/21/2024 3:46 AM CDT John Henry MD URINE ORDERABLES Final Re sult Performing Organization Address [facility] Co de Phone Number [facility] [address] [place] [address] * (ABNORMAL) Hemoglobin A1C (11/21/2024 3:34 AM CDT) Pathologist [facility] HGB-A1C 13.1(H) 4.0 - 6.0 % 11/21/2024 4:11 AM CDT [facility] Est Average Glucose 329.3 mg/dL 11/21/2024 4:11 AM CDT [facility] Blood Venipuncture / Unknown 11/21/2024 3:34 AM CDT 11/21/2024 3:46 AM CDT Narrative [facility] - 11/21/2024 4:11 AM CDT HEMOGLOBIN A1C: DIABETIC PATIENTS: WELL-CONTROLLED: 6.2 - 7.0 INTERMEDIATE WELL-CONTROLLED: 7.0 - 9.0 POORLY-CONTROLLED: >9.0 Specimens containing greater than 5% of Hemoglobin F may result in lower than expected % HbA1C results. John Henry MD CHEMISTRY ORDERABLES Machelle l Result Performing Organization Address City/[facility]/ZIP Co de Phone Number [facility] [address] [place] [address] * (ABNORMAL) ACETONE QUAL (11/21/2024 3:25 AM CDT) ACETONE Small amount(A) Negative 11/21/2024 4:05 AM CDT [facility] Blood Venipuncture / Unknown 11/21/2024 3:25 AM CDT 11/21/2024 3:46 AM CDT us John Henry MD CHEMISTRY ORDERABLES Machelle l Result [facility] [address] [place] [address] * (ABNORMAL) Blood Gases, Venous w/ O2 Saturation (11/21/2024 1:41 AM TIMBER TRIMMER) O2 STATUS UNKNOWN 11/21/2024 1:44 AM TIMBER TRIMMER [facility] PH VENOUS 7.32(L) 7.34 - 7.43 11/21/2024 1:44 AM TIMBER TRIMMER [facility] PCO2 (VENOUS) 33(L) 41 - 51 mmHg 11/21/2024 1:44 AM TIMBER TRIMMER [facility] PO2 VENOUS 54(H) 30 - 50 mmHg 11/21/2024 1:44 AM TIMBER TRIMMER [facility] O2 SAT MIRELA, MEASURED 81 60 - 85 % 11/21/2024 1:44 AM TIMBER TRIMMER [facility] BICARBONATE 17.0(L) 22.0 - 26.0 mmol/L 11/21/2024 1:44 AM TIMBER TRIMMER [facility] BASE VENOUS -7.4(L) -2.0 - 3.0 mmol/L 11/21/2024 1:44 AM TIM[employer] TRIMMER [facility] MIRELA Blood Gas Venipuncture / Unknown 11/21/2024 1:41 AM TIMBER TRIMMER 11/21/2024 1:41 AM TIMBER TRIMMER Narrative [facility] - 11/21/2024 1:44 AM TIMBER TRIMMER Interpretation - The usual approach to interpreting a VBG consists of using the venous measurements to estimate the corresponding arterial values, then using these estimated values for clinical decision-making exactly as if an ABG had been performed. The difference between the venous measurements and the arterial measurements depends upon the site of venous sampling and varies among laboratories. Correlation with arterial blood gases - Although arterial blood gas analysis is more accurate than venous analysis for the assessment of oxygenation, measurement of PCO2, pH, and HCO3 are similar with some minor adjustments: The central venous pH is usually 0.03 to 0.05 pH units lower than the arterial pH and the PCO2 is usually 4 to 5 mmHg higher, with little or no increase in HCO3. Mixed venous blood (ie, SvO2 drawn from a pulmonary artery catheter) gives results similar to central venous blood (ie, ScvO2 drawn from a central venous catheter). The peripheral venous pH is approximately 0.02 to 0.04 pH units lower than the arterial pH, the venous serum HCO3 concentration is approximately 1 to 2 meq/L higher, and the venous PCO2 is approximately 3 to 8 mmHg higher. There are no venous to arterial conversions for ScvO2, SvO2, or peripheral venous oxyhemoglobin saturation (PvO2). Importantly, sufficient variability between arterial and venous blood gas values may exist such that periodic correlation between arterial and venous blood gas values is always prudent. John Henry MD CHEMISTRY ORDERABLES Machelle l Result Performing Organization Address City/[facility]/ZIP Co de Phone Number [facility] [place] [address] * Culture, Blood (11/21/2024 1:16 AM TIMBER TRIMMER) Only the most recent of2 resultswithin the time period is included. CULTURE RESULTS NO GROWTH WITHIN 5 DAYS, FINAL RESULT 11/26/2024 3:[address] [facility] Culture BLOOD SPECIMEN / Unknown Venipuncture / Unknown 11/21/2024 1:16 AM TIMBER TRIMMER 11/21/2024 1:24 AM TIMBER TRIMMER John Henry MD MICROBIOLOGY - GENERAL OR DERABLES Final Result [facility] [address] [place] [address], [place] * (ABNORMAL) Blood Gases, PH Venous Blood (11/21/2024 1:12 AM TIMBER TRIMMER) PH VENOUS 7.32(L) 7.34 - 7.43 11/21/2024 1:35 AM TIMBER TRIMMER [facility] MIRELA Blood Gas Venipuncture / Unknown 11/21/2024 1:12 AM TIMBER TRIMMER 11/21/2024 1:24 AM TIMBER TRIMMER John Henry MD CHEMISTRY ORDERABLES Machelle l Result Performing Organization Address [facility] Co de Phone Number [facility] [place] [address] * Lactic Acid (Lactate) (11/21/2024 1:12 AM TIMBER TRIMMER) LACTIC ACID 0.9 0.7 - 2.0 mmol/L 11/21/2024 1:55 AM TIMBER TRIMMER [facility] Comment: Specimen is hemolyzed. In vitro hemolysis could affect results. Clinical correlation advised. Blood Venipuncture / Unknown 11/21/2024 1:12 AM TIMBER TRIMMER 11/21/2024 1:28 AM TIMBER TRIMMER John Henry MD CHEMISTRY ORDERABLES Machelle l Result Performing Organization Address City/[facility] Co de Phone Number [facility] [place] [address] * Critical Care (11/20/2024 11:24 PM TIMBER TRIMMER) Narrative John Henry MD - 11/20/2024 11:24 PM TIMBER TRIMMER John Henry MD 11/22/2024 2:21 AM Critical Care Performed by: John Henry MD Authorized by: John Henry MD Critical care provider statement: Critical care time (minutes): 45 Critical care time was exclusive of: Separately billable procedures and treating other patients Critical care was necessary to treat or prevent imminent or life-threatening deterioration of the following conditions: Tonsillitis, diabetic ketoacidosis. Critical care was time spent personally by me on the following activities: Development of treatment plan with patient or surrogate, evaluation of patient's response to treatment, examination of patient, interpretation of cardiac output measurements, obtaining history from patient or surrogate, ordering and performing treatments and interventions, ordering and review of laboratory studies, ordering and review of radiographic studies, pulse oximetry, re-evaluation of patient's condition and review of old charts I assumed direction of critical care for this patient from another provider in my specialty: no Care discussed with: admitting provider John Henry MD PROCEDURE/MINOR SURGICAL ORDERABLES Final Result * Gold Top Tube (11/20/2024 10:52 PM TIMBER TRIMMER) Only the most recent of2 resultswithin the time period is included. Blood No Phlebotomy Charged / Unknown 11/20/2024 10:52 PM TIMBER TRIMMER 11/20/2024 11:21 PM TIMBER TRIMMER John Herny MD CHEMISTRY ORDERABLES Machelle l Result Performing Organization Address [facility] Co de Phone Number [facility] [place] [address] * Blue Top Tube (11/20/2024 10:52 PM TIMBER TRIMMER) Only the most recent of2 resultswithin the time period is included. Blood No Phlebotomy Charged / Unknown 11/20/2024 10:52 PM TIMBER TRIMMER 11/20/2024 11:21 PM TIMBER TRIMMER John Henry MD HEMATOLOGY ORDERABLES Fin al Result Performing Organization Address [facility] Co de Phone Number [facility] [place] [address] * CT SOFT TISSUE NECK W CONTRAST (11/20/2024 1:09 AM TIMBER TRIMMER) Anatomical Region Laterality Modality Spine N/A Computed Tomogra phy 11/20/2024 1:38 AM TIMBER TRIMMER Impressions 11/20/2024 1:41 AM TIMBER TRIMMER IMPRESSION: Fullness of the soft tissues in the region of the left tonsil with mild effacement of the left side of the oropharynx and moderate effacement of the left side of the vallecula. This may represent tonsillitis. No discrete rim enhancing collection is seen to suggest abscess. Recommend correlation with direct visualization. Partial opacification of the right mastoid air cells and right middle ear. Recommend clinical correlation for possible otomastoiditis. Hoxz-cj-eupxbapb paranasal sinus disease. Narrative 11/20/2024 1:41 AM TIMBER TRIMMER EXAM DESCRIPTION: CT SOFT TISSUE NECK W CONTRAST REASON FOR STUDY: c/o productive cough, headache, sore throat and left ear pain x 1 week. HX: Asthma, DM TECHNIQUE: Post IV contrast scanning from skull base through lung apices. Reconstructed MPR images reviewed. All images stored on PACS. Automated exposure control was used as a dose optimization technique for this examination. CONTRAST TYPE/DOSE: 100mL of IOPAMIDOL 76 % IV SOLN injected via Intravenous COMPARISON: None. FINDINGS: INTRACRANIAL STRUCTURES: The visualized intracranial structures are unremarkable. ORBITS: The globes and orbits appear normal. PARANASAL SINUSES: There is mild mucosal thickening of the left frontal sinus. There are scattered areas of mucosal thickening through out the ethmoid air cells. There is wepy-di-oruyzjve right and mild left mucosal thickening of the maxillary sinuses. The remaining paranasal sinuses are clear. MASTOIDS: The left mastoid air cells are clear. There is partial opacification of the right mastoid air cells. There is partial opacification of the right middle ear. SKULL/SKULL BASE: No bony abnormalities are seen. CERVICAL SPINE: No significant abnormalities. MAJOR SALIVARY GLANDS: No solid or cystic masses. No inflammatory changes. THYROID: The thyroid gland is normal. SOFT TISSUES: The nasopharynx appears normal. There is fullness of the soft tissues in the region of the left tonsil with mild effacement of the left side of the oropharynx and moderate effacement of the left side of the vallecula. Remainder of the pharynx and hypopharynx appear normal. The epiglottis appears normal and thin. The pyriform sinuses are unremarkable. There is no discrete rim enhancing collection seen. No lymphadenopathy is seen by CT size criteria. VASCULATURE: No apparent critical stenosis or occlusion. LUNG APICES: Clear. SUPERIOR MEDIASTINUM: No abnormality seen. OTHER: No other significant finding. THIS IS AN ELECTRONICALLY VERIFIED FINAL REPORT 11/20/2024 1:38 AM - Electronically signed by Tana Rome M.D. SN: SN Report ID: [id number] Reading Location: [id number] Procedure Note Tana Rome MD - 11/20/2024 EXAM DESCRIPTION: CT SOFT TISSUE NECK W CONTRAST REASON FOR STUDY: c/o productive cough, headache, sore throat and left ear pain x 1 week. HX: Asthma, DM TECHNIQUE: Post IV contrast scanning from skull base through lung apices. Reconstructed MPR images reviewed. All images stored on PACS. Automated exposure control was used as a dose optimization technique for this examination. CONTRAST TYPE/DOSE: 100mL of IOPAMIDOL 76 % IV SOLN injected via Intravenous COMPARISON: None. FINDINGS: INTRACRANIAL STRUCTURES: The visualized intracranial structures are unremarkable. ORBITS: The globes and orbits appear normal. PARANASAL SINUSES: There is mild mucosal thickening of the left frontal sinus. There are scattered areas of mucosal thickening through out the ethmoid air cells. There is utpw-kp-rhdovhja right and mild left mucosal thickening of the maxillary sinuses. The remaining paranasal sinuses are clear. MASTOIDS: The left mastoid air cells are clear. There is partial opacification of the right mastoid air cells. There is partial opacification of the right middle ear. SKULL/SKULL BASE: No bony abnormalities are seen. CERVICAL SPINE: No significant abnormalities. MAJOR SALIVARY GLANDS: No solid or cystic masses. No inflammatory changes. THYROID: The thyroid gland is normal. SOFT TISSUES: The nasopharynx appears normal. There is fullness of the soft tissues in the region of the left tonsil with mild effacement of the left side of the oropharynx and moderate effacement of the left side of the vallecula. Remainder of the pharynx and hypopharynx appear normal. The epiglottis appears normal and thin. The pyriform sinuses are unremarkable. There is no discrete rim enhancing collection seen. No lymphadenopathy is seen by CT size criteria. VASCULATURE: No apparent critical stenosis or occlusion. LUNG APICES: Clear. SUPERIOR MEDIASTINUM: No abnormality seen. OTHER: No other significant finding. THIS IS AN ELECTRONICALLY VERIFIED FINAL REPORT 11/20/2024 1:38 AM - Electronically signed by Tana Rome M.D. SN: SN Report ID: [id number] Reading Location: [id number] IMPRESSION: Fullness of the soft tissues in the region of the left tonsil with mild effacement of the left side of the oropharynx and moderate effacement of the left side of the vallecula. This may represent tonsillitis. No discrete rim enhancing collection is seen to suggest abscess. Recommend correlation with direct visualization. Partial opacification of the right mastoid air cells and right middle ear. Recommend clinical correlation for possible otomastoiditis. Mffa-mg-ixsbtmgr paranasal sinus disease. John Henry MD IMG CT ORDERABLES Final R esult * (ABNORMAL) Sed Rate (Esr) [id number] (11/20/2024 12:04 AM TIMBER TRIMMER) ESR (SED RATE, ERYTHROCYTE SEDIMENTATION RATE) 25(H) <15 mm/h 11/20/2024 12:14 AM TIMBER TRIMMER [facility] Comment: Patients presenting with increased level of fibrinogen, gamma globulins, or abnormally shaped RBCs could affect the results for the erythrocyte sedimentation rate (ESR). Results should be clinically correlated. Blood Venipuncture / Unknown 11/20/2024 12:04 AM TIMBER TRIMMER 11/20/2024 12:12 AM TIMBER TRIMMER John Henry MD HEMATOLOGY ORDERABLES Fin al Result [facility] [address] [place] [address] * (ABNORMAL) C-Reactive Protein Qnt (Crp) (11/20/2024 12:04 AM TIMBER TRIMMER) C-REACTIVE PROTEIN 3.09(H) <0.50 mg/dL 11/20/2024 12:37 AM TIMBER TRIMMER [facility] Blood Venipuncture / Unknown 11/20/2024 12:04 AM TIMBER TRIMMER 11/20/2024 12:12 AM TIMBER TRIMMER us John Henry MD CHEMISTRY ORDERABLES Machelle l Result [facility] [address] [place] [address] * XR CHEST SINGLE VIEW PORTABLE (11/19/2024 11:47 PM TIMBER TRIMMER) Anatomical Region Laterality Modality Chest N/A Digital Radiogra phy 11/19/2024 11:5 6 PM TIMBER TRIMMER Impressions 11/19/2024 11:59 PM TIMBER TRIMMER IMPRESSION: No acute cardiopulmonary abnormality. Narrative 11/19/2024 11:59 PM TIMBER TRIMMER EXAM DESCRIPTION: XR CHEST SINGLE VIEW PORTABLE REASON FOR STUDY: c/o productive cough, headache, sore throat and left ear pain x 1 week. HX: Asthma, DM TECHNIQUE: Frontal radiographic view(s) of the chest. COMPARISON: 11/08/2022 FINDINGS: LUNGS: Mild bibasilar atelectasis. No focal pulmonary parenchymal consolidation, pleural effusion, or pneumothorax. HEART/MEDIASTINUM: Cardiac silhouette normal in size. Mediastinal and hilar contours appear normal. LINES/TUBES: None. BONES: No acute osseous abnormality. THIS IS AN ELECTRONICALLY VERIFIED FINAL REPORT 11/19/2024 11:56 PM - Electronically signed by Ashley Estrada M.D. AT: AT Report ID: [id number] Reading Location: [id number] Procedure Note Ashley Estrada MD - 11/19/2024 EXAM DESCRIPTION: XR CHEST SINGLE VIEW PORTABLE REASON FOR STUDY: c/o productive cough, headache, sore throat and left ear pain x 1 week. HX: Asthma, DM TECHNIQUE: Frontal radiographic view(s) of the chest. COMPARISON: 11/08/2022 FINDINGS: LUNGS: Mild bibasilar atelectasis. No focal pulmonary parenchymal consolidation, pleural effusion, or pneumothorax. HEART/MEDIASTINUM: Cardiac silhouette normal in size. Mediastinal and hilar contours appear normal. LINES/TUBES: None. BONES: No acute osseous abnormality. THIS IS AN ELECTRONICALLY VERIFIED FINAL REPORT 11/19/2024 11:56 PM - Electronically signed by Ashley Estrada M.D. AT: AT Report ID: [id number] Reading Location: [id number] IMPRESSION: No acute cardiopulmonary abnormality. John Henry MD IMG DIAGNOSTIC ORDERABLES Final Result * RSV,SARS-COV-2,INFLUENZA A&B BY PCR (11/19/2024 11:21 PM TIMBER TRIMMER) FLU A Negative Negative, Error 11/20/2024 12:07 AM TIMBER TRIMMER [facility] FLU B Negative Negative 11/20/2024 12:07 AM TIMBER TRIMMER [facility] RESP SYNC VIRUS Negative Negative 12:07 AM TIMBER TRIMMER [facility] SARSCOV2 NOT DETECTED (Reference Range for this test is Not Detected) 11/20/2024 12:07 AM TIMBER TRIMMER [facility] Comment:This test was perfor med by a Reverse Front Desk Assistant PCR Method. Swab NASOPHARYNGEAL WASHINGS / Unknown Non-Phlebotomy Collection / Unknown 11/19/2024 11:21 PM TIMBER TRIMMER 11/19/2024 11:27 PM TIMBER TRIMMER John Henry MD MICROBIOLOGY - GENERAL OR DERABLES Final Result [facility] [place] [address] from Last 3 Months Insurance [facility] GENER[facility] Advance Directives * Full Code (Latest Code Status on File) Date Activated Date Inactivated Comments 11/21/2024 6:29 AM CPR-Full Treatm ent: FULL ARREST: Attempt Resuscitation/CPR wit intubation and mechanical ventilation. PRE-ARREST: Use entire range of life support measures to stabilize the patient. Care Teams Kelp Cutter Relationship Specialty [place] [address] [facility] [place] [address] PCP - General Internal Medicine 07/03/18
--- OUTSIDE RECORDS SUMMARY | 2025-01-21 20:21 | XMS_ITS | Clinical Summary ---
Author Organization [facility] Address [address] [place] [address] Care Team Providers Care Doll Dresser Name Role Phone Darin Hopson MD Primary Care Provider + Allergies No known active allergies Medications omeprazole [...] within 12 hours or as directed by . 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 Diabetic ulcer [...] Generalized anxiety disorder 03/29/2013 Persistent insomnia 03/29/2013 Encounters Date Type Department Care Team Description 12/31/2024 12:30 PM CDT Lab [address] [address] from Last 3 Months Surgical History Surgery Date Site/Laterality Comments FOOT SURGERY Right knuckle and 2 bones removed Medical History Medical History Date Comments DM (diabetes mellitus) (HCC) Acid reflux Type 2 diabetes mellitus (HCC) Sebaceous cyst left shoulder Sleep apnea Depression Family History Medical History Relation Name Comments Suicide Completion Father Dementia Mother Diabetes Mother Relation Name Status Comments Father Mother Social History Tobacco Use Types Packs/Day Years [...] on file Legal Sex Male 1:21 PM [employer] Gender Identity Not on file Sexual Orientation Not on file Obstetrics History Last Filed Vital Signs Vital Sign Reading [...] 03/10/2024 7:30 PM CDT Plan of Treatment Health Maintenance Due Date Last Done Comments Albumin Creatinine Ratio, Urine 1977 Colon Cancer Screening-Colonoscopy 1977 Depression Screening 1977 Hepatitis C Screening 1977 Dilated Eye Exam 1977 Foot Exam 1977 DTaP/Tdap/Td Vaccine (1 - Tdap) 1988 Hepatitis B Screening 1995 Regular Well Visit/Exam 18-64 1995 Pneumococcal vaccine <65 (1 of 2 - PCV) 1996 Influenza Vaccine (Season Ended) 2025 Hemoglobin A1C 07/02/2025 12/31/2024, 05/16, 01/13/2024, Additional history exists Lipid Panel 12/31/2025 12/31/2024, 11/13, 10/18/2023, Additional history exists eGFR 12/31/2025 12/31/2024, 05/16, 03/10/2024, Additional history exists Procedures Procedure Name Priority Date/Time Associated Diagnosis [...] 1 PM CDT 12/31/2024 6:58 PM CDT Darin Hopson MD LAB BLOOD ORDERABLES [facility] al Result [facility] [address] [place] [address] * Differential, auto (12/31/2024 12:31 PM CDT) Neutrophil abs 4.89 1.50 - 6.50 K/cumm Imm gran abs 0.02 0.00 - 0.10 K/cumm [facility] Lymphocyte abs 0.92 0.80 - 3.30 K/cumm [facility] Monocyte abs 0.55 0.20 - 0.80 K/cumm [facility] Eosinophil abs 0.10 0.00 - 0.50 K/cumm [facility] Basophil abs 0.05 0.00 - 0.10 K/cumm [facility] Neutrophil pct 74.9 % [facility] Comment: Interpretive Data Percent cell count reference ranges are not reported, since discordance with absolute values may lead to misinterpretation of CBC data. Current Interpretive Data was last revised on 2017. Imm gran pct 0.3 % [facility] Comment: Interpretive Data Percent cell count reference ranges are not reported, since discordance with absolute values may lead to misinterpretation of CBC data. Current Interpretive Data was last revised on 2017. Lymphocyte pct 14.1 % [facility] Comment: Interpretive Data Percent cell count reference ranges are not reported, since discordance with absolute values may lead to misinterpretation of CBC data. Current Interpretive Data was last revised on 2017. Monocyte pct 8.4 % [facility] Comment: Interpretive Data Percent cell count reference ranges are not reported, since discordance with absolute values may lead to misinterpretation of CBC data. Current Interpretive Data was last revised on 2017. Eosinophil pct 1.5 % [facility] Comment: Interpretive Data Percent cell [...] MD LAB BLOOD ORDERABLES Fin al Result [facility] [address] [place] [address] * (ABNORMAL) Urinalysis, macroscopic Urine (12/31/2024 12:31 PM CDT) Color, ur Yellow Yellow Clarity, ur Clear [facility] Specific gravity, ur 1.024 1.003 - 1.[address] [facility] pH, urine 5.[address] [facility] Comment: Interpretive Data U rine pH is affected by diet, medications, systemic acid-base disturbances, and renal tubular function. pH may affect urinary stone formation. For example, urine pH below 6.0 may help reduce the tendency for calcium phosphate stones and pH greater than 6.0 may reduce the tendency for uric acid stone formation. Source: [facility] [employer] Current Interpretive Data was last revised on [...] 12:32 PM CDT Darin Hopson MD LAB MICROBIOLOGY - GENER AL ORDERABLES Final Result Performing Organization Address City/[facility]/ZIP Co de Phone Number [facility] SHI [address] [place] [address] * CBC with auto differential (12/31/2024 12:31 [...] ORDERABLES Fin al Result Performing Organization Address City/[facility]/ZIP Co de Phone Number [facility] SHI [address] [place] [address] * (ABNORMAL) Vitamin D 25 hydroxy (12/31/2024 12:31 PM CDT) Pathologist [facility] Vitamin D 25-OH 24(L) 30 - 80 ng/mL Blood 12/31/2024 12:3 1 PM CDT 12/31/2024 12:32 PM CDT Darin Hopson MD LAB BLOOD ORDERABLES Fin al Result Performing Organization Address City/[facility] Co de Phone Number [place] [address] [address] [facility] [place] [address] * TSH (12/31/2024 12:31 PM CDT) [facility] Thyroid Stimulating Hormone 1.35 0.30 - 4.20 mcIUnit/mL Blood 12/31/2024 12:3 1 PM CDT 12/31/2024 12:31 PM CDT Darin Hopson MD LAB BLOOD ORDERABLES Fin al Result Performing Organization Address [facility] Co de Phone Number [place] [address] [address] [facility] [place] [address] * Total testosterone (12/31/2024 12:31 PM CDT) [facility] Testosterone 311 249 - 836 ng/dL Blood 12/31/2024 12:3 1 PM CDT 12/31/2024 12:31 PM CDT Darin Hopson MD LAB BLOOD ORDERABLES Fin al Result Performing Organization Address [facility] Co de Phone Number [place] [address] [address] [facility] [place] [address] * (ABNORMAL) Hemoglobin A1c (12/31/2024 12:31 PM CDT) [facility] Hgb A1C 10.9(H) 4.0 - 5.6 % Estimated Average Glucose 266 mg/dL [facility] Comment: The ADA recommends reporting an estimated Average Glucose (eAG) with all Hemoglobin A1c results using the equation derived from a study of 507 normal and diabetic adults. Minority populations were underrepresented and children were not included. (Diabetes Care 31:2520-6847, 2008). The eAG is not equivalent to a fasting glucose. Blood 12/31/2024 12:3 1 PM CDT 12/31/2024 12:31 PM CDT us Darin Hopson MD LAB BLOOD ORDERABLES Fin al Result [facility] [address] [address] [place] [address] * Lipid panel (12/31/2024 12:31 PM CDT) [...] on 2018. Triglycerides 87 <=149 mg/dL [facility] Comment: Interpretive Data Ages < or = [...] 2. NCEP Expert Panel. Circulation 2004;110:227 3. Long Moralez al. COURTNEY Cardiol. 2019January 13;5(5):540-548. doi: 10.1001/jamacardio.2020.0013 Current Interpretive Data was last revised on 2024. Non-HDL Cholesterol 126 mg/dL [facility] Comment: Interpretive Data Ages < [...] revised on 2018. Chol/HDL ratio 3 [facility] Blood 12/31/2024 12:3 1 PM CDT 12/31/2024 12:31 PM CDT Darin Hopson MD LAB BLOOD [place] [address] [place] [address] * (ABNORMAL) Comprehensive metabolic panel (12/31/2024 12:31 PM CDT) Sodium 134(L) 135 - 145 mmol/L Potassium, pl 4.2 3.3 - 4.9 mmol/L [facility] Chloride 99 97 - 110 mmol/L [facility] CO2 22 22 - 32 mmol/L [facility] Anion gap 13 2 - 15 mmol/L [facility] BUN 10 6 - 25 mg/dL [facility] Creatinine 0.60(L) 0.80 - 1.30 mg/dL [facility] Glucose 289(H) 70 - 199 mg/dL [facility] Comment: Interpretive Data Fasting glucose >/= 126 [...] classification and Diagnosis of Diabetes Diabetes Care 2021; 46: S19-S40. Current interpretive data was last [...] LAB BLOOD [place] [address] [address] [place] [address] from Last 3 Months Insurance [facility] SIG [id number] [place] [id number] [place] [id number] Advance Directives For more information, please contact: [phone] * Full Code (Latest Code Status on File) Date Activated Date Inactivated Comments 05/08/2021 2:43 AM 05/09/2021 6:43 PM Care Teams Doll Dresser Relationship Specialty [place] [address] [address] [facility] [place] [address] PCP - General 12/26/16
--- OUTSIDE RECORDS SUMMARY | 2025-01-21 20:51 | XMS_ITS | Clinical Summary ---
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 Gender Identity Not on file Sexual Orientation [...] CDT Darin Hopson MD LAB BLOOD ORDERABLES [facility] al Result [facility] [address] Department [place] [address] * Differential, auto (12/31/2024 12:31 PM CDT) Neutrophil abs 4.89 1.50 - 6.50 K/cumm Imm gran abs 0.02 0.00 - 0.10 K/cumm [facility] Lymphocyte abs 0.92 0.80 - 3.30 K/cumm [facility] Monocyte abs 0.55 0.20 - 0.80 K/cumm [facility] Eosinophil abs 0.10 0.00 - 0.50 K/cumm [facility] Basophil abs 0.05 0.00 - 0.10 K/cumm [facility] Neutrophil pct 74.9 % [facility] Comment: Interpretive Data Percent cell count [...] MD LAB BLOOD ORDERABLES Fin al Result [facility] [address] Department [place] [address] * (ABNORMAL) Urinalysis, macroscopic Urine (12/31/2024 12:31 PM CDT) Color, ur Yellow Yellow Clarity, ur Clear Clear [facility] Specific gravity, ur 1.024 1.003 - 1.030 [facility] pH, urine 5.5 [facility] Comment: Interpretive Data U rine pH is affected by diet, medications, systemic acid-base disturbances, and renal tubular function. pH may affect urinary stone formation. For example, urine pH below 6.0 may help reduce the tendency for calcium phosphate stones and pH greater than 6.0 may reduce the tendency for uric acid stone formation. Source: [facility] TeamVisibility Current Interpretive Data was last revised on [...] AL ORDERABLES Final Result Performing Organization Address City/[facility]/ZIP Co de Phone Number LYNNE SHI [address] [place] [address] * CBC with auto differential [...] ORDERABLES Fin al Result Performing Organization Address City/[facility]/ZIP Co de Phone Number LYNNE SHI [address] Department [employer] [address] * (ABNORMAL) Vitamin D 25 hydroxy (12/31/2024 12:31 PM CDT) Pathologist [facility] Vitamin D 25-OH 24(L) 30 - 80 ng/mL Blood 12/31/2024 12:3 1 PM CDT 12/31/2024 12:32 PM CDT Darin Hopson MD LAB BLOOD ORDERABLES Fin al Result Performing Organization Address City/[facility] Co de Phone Number LYNNE [address] [address] [facility] [place] [address] * TSH (12/31/2024 12:31 PM CDT) [facility] Thyroid Stimulating Hormone 1.35 0.30 - 4.20 mcIUnit/mL Blood 12/31/2024 12:3 1 PM CDT 12/31/2024 12:31 PM CDT Darin Hopson MD LAB BLOOD ORDERABLES Fin al Result Performing Organization Address [facility] Co de Phone Number LYNNE [address] [address] [facility] [place] [address] * Total testosterone (12/31/2024 12:31 PM CDT) [facility] Testosterone 311 249 - 836 ng/dL Blood 12/31/2024 12:3 1 PM CDT 12/31/2024 12:31 PM CDT Darin Hopson MD LAB BLOOD ORDERABLES Fin al Result Performing Organization Address [facility] Co de Phone Number LYNNE [address] [facility] [place] [address] * (ABNORMAL) Hemoglobin A1c (12/31/2024 12:31 PM CDT) [facility] Hgb A1C 10.9(H) 4.0 - 5.6 % Estimated Average Glucose 266 mg/dL LYNNE SHI Comment: The ADA recommends reporting an estimated Average Glucose (eAG) with all Hemoglobin A1c results using the equation derived from a study of 507 normal and diabetic adults. Minority populations were underrepresented and children were not included. (Diabetes Care 31:3315-3571, 2008). The eAG is not equivalent to a fasting glucose. Blood 12/31/2024 12:3 1 PM CDT 12/31/2024 12:31 PM CDT us Darin Hopson MD LAB BLOOD ORDERABLES Fin al Result LYNNE [address] [address] Department [place] [address] * Lipid panel (12/31/2024 12:31 PM CDT) [...] BLOOD ORDERAB[place] [address] Department [place] [address] * (ABNORMAL) Comprehensive metabolic panel (12/31/2024 12:31 [...] [place]LOOD [place] [address] [address] Department [place] [address] from Last 3 Months Insurance [facility] SIG [id number] [place] [phone] [place] [phone] Advance Directives For more information, please contact: [phone] * Full Code (Latest Code Status on File) Date Activated Date Inactivated Comments 05/08/2021 2:43 AM 05/09/2021 6:43 PM Care Teams Osteology Teacher Relationship Specialty [place] [address] [facility] [place] [address] PCP - General 12/26/16
--- OUTSIDE RECORDS SUMMARY | 2025-01-21 20:51 | XMS_ITS | Referral Summary ---
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 Gender Identity Not on file Sexual Orientation [...] LAB BLOOD ORDERABLES Fin al Result LYNNE [address] Department [place] [address] * Differential, auto (12/31/2024 12:31 PM CDT) Neutrophil abs 4.89 1.50 - 6.50 K/cumm Imm gran abs 0.02 0.00 - 0.10 K/cumm [facility] Lymphocyte abs 0.92 0.80 - 3.30 K/cumm [facility] Monocyte abs 0.55 0.20 - 0.80 K/cumm [facility] Eosinophil abs 0.10 0.00 - 0.50 K/cumm [facility] Basophil abs 0.05 0.00 - 0.10 K/cumm [facility] Neutrophil pct 74.9 % [facility] Comment: Interpretive Data Percent cell count reference ranges are not reported, since discordance with absolute values may lead to misinterpretation of CBC data. Current Interpretive Data was last revised on 2017. Imm gran pct 0.3 % [facility] Comment: Interpretive Data Percent cell count reference ranges are not reported, since discordance with absolute values may lead to misinterpretation of CBC data. Current Interpretive Data was last revised on 2017. Lymphocyte pct 14.1 % [facility] Comment: Interpretive Data Percent cell count reference ranges are not reported, since discordance with absolute values may lead to misinterpretation of CBC data. Current Interpretive Data was last revised on 2017. Monocyte pct 8.4 % [facility] Comment: Interpretive Data Percent cell count reference ranges are not reported, since discordance with absolute values may lead to misinterpretation of CBC data. Current Interpretive Data was last revised on 2017. Eosinophil pct 1.5 % [facility] Comment: Interpretive Data Percent cell count [...] CENTER Co de Phone Number CERKRYSTA SHI [address] [place] [address] * (ABNORMAL) Urinalysis, macroscopic Urine (12/31/2024 12:31 [...] tendency for uric acid stone formation. Source: [facility] Watchwith Current Interpretive Data was last revised on [...] AL ORDERABLES Final Result Performing Organization Address [facility] de Phone Number LYNNE SHI [address] Department [place] [address] * CBC with auto differential (12/31/2024 12:31 [...] ORDERABLES Fin al Result Performing Organization Address [facility] Co de Phone Number LYNNE SHI [address] [facility] [place] [address] * (ABNORMAL) Vitamin D 25 hydroxy (12/31/2024 12:31 PM CDT) Vitamin D 25-OH 24(L) 30 - 80 ng/mL Blood 12/31/2024 12:3 1 PM CDT 12/31/2024 12:32 PM CDT Darin Hopson MD LAB BLOOD ORDERABLES Fin al Result Performing Organization Address [facility] Co de Phone Number LYNNE YURIDIA [address] [facility] [place] [address] * TSH (12/31/2024 12:31 PM CDT) Thyroid Stimulating Hormone 1.35 0.30 - 4.20 mcIUnit/mL Blood 12/31/2024 12:3 1 PM CDT 12/31/2024 12:31 PM CDT Darin Hopson MD LAB BLOOD ORDERABLES Fin al Result Performing Organization Address [facility] Co de Phone Number LYNNE [address] [facility] [place] [address] * Total testosterone (12/31/2024 12:31 PM CDT) Testosterone 311 249 - 836 ng/dL Blood 12/31/2024 12:3 1 PM CDT 12/31/2024 12:31 PM CDT Darin Hopson MD LAB BLOOD ORDERABLES Fin al Result Performing Organization Address [facility] Phone Number LYNNE [address] [facility] [place] [address] * (ABNORMAL) Hemoglobin A1c (12/31/2024 12:31 PM CDT) Hgb A1C 10.9(H) 4.0 - 5.6 % Estimated Average Glucose 266 mg/dL LYNNE SHI Comment: The ADA recommends reporting an estimated Average Glucose (eAG) with all Hemoglobin A1c results using the equation derived from a study of 507 normal and diabetic adults. Minority populations were underrepresented and children were not included. (Diabetes Care 31:3034-3123, 2008). The eAG is not equivalent to a fasting glucose. Blood 12/31/2024 12:3 1 PM CDT 12/31/2024 12:31 PM CDT Darin Hopson MD LAB BLOOD ORDERABLES Fin al Result Performing Organization Address [facility] de Phone Number LYNNE YURIDIA [address] [facility] [place] [address] * Lipid panel (12/31/2024 12:31 PM CDT) [...] revised on 2024. Non-HDL Cholesterol 126 mg/dL [facility] Comment: Interpretive Data Ages < or [...] LAB BLOOD ORDERABLES Fin al Result [facility] [address] Department [place] [address] * (ABNORMAL) Comprehensive metabolic panel (12/31/2024 12:31 PM CDT) Sodium 134(L) 135 - 145 mmol/L Potassium, pl 4.2 3.3 - 4.9 mmol/L [facility] Chloride 99 97 - 110 mmol/L [facility] CO2 22 22 - 32 mmol/L [facility] Anion gap 13 2 - 15 mmol/L [facility] BUN 10 6 - 25 mg/dL [facility] Creatinine 0.60(L) 0.80 - 1.30 mg/dL [facility] Glucose 289(H) 70 - 199 mg/dL [facility] Comment: Interpretive Data Fasting glucose >/= [...] CDT Darin Hopson MD LAB BLOOD ORDERABLES [facility] al Result LYNNE [address] Department of Laboratories [place] [phone] from Last 3 Months Insurance [employer] SIG [id number] [place] [phone] [place] [phone] Advance Directives For more information, please contact: [phone] * Full Code (Latest Code Status on File) Date Activated Date Inactivated Comments 05/08/2021 2:43 AM 05/09/2021 6:43 PM Care Teams Batteryman Relationship Specialty [place] [address] [address] [facility] [place] [address] PCP - General 12/26/16
--- OUTSIDE RECORDS SUMMARY | 2025-01-21 20:51 | XMS_ITS | Clinical Summary ---
Author Organization [facility] Address [address] [place] [id number] Care Team Providers Care Etcher Electrolytic Name Role Phone Unavailable Primary Care Provider [...]
--- OUTSIDE RECORDS SUMMARY | 2025-01-21 20:51 | XMS_ITS | Clinical Summary ---
Author Organization [facility] Address [address] [place] [address] Phone Care Team Providers Care Exchange Trouble Shooter Name Role Phone Darin Huizar MD Primary Care Provider [phone] Allergies No known active allergies Medications Omeprazole [...] 11/28/2024 10:35 AM CDT Emergency [facility] Emergency [address] [place] [address] Naveed Hendricks MD Hyperglycemia Discharge Disposition: Discharged to home or Selfcare 11/28/2024 Travel 11/20/2024 10:31 PM TUBE CUTTER - 11/23/2024 1:00 PM CDT Hospital Encounter [facility] Medical/Surgical Intensive Care [address] [place] [address] John Henry MD Krishna, Naveen Kumar, MD Patel, Satyen V, MD Dianati, Behfar, MD Diabetic ketoacidosis (HCC) Discharge Disposition: Discharged to home or Selfcare 11/20/2024 Travel 11/19/2024 11:12 PM TUBE CUTTER - 11/20/2024 2:50 AM TUBE CUTTER Emergency [facility] Emergency [address] [place] [address] John Henry MD Acute infective tonsillitis Discharge Disposition: Left Against Medical Advice 11/19/2024 Travel from Last 3 Months Social History Tobacco Use Types Packs/Day Years Used Date Smoking Tobacco: Never Smokeless Tobacco: Never Alcohol Use Standard Drinks/Week Comments No 0 (1 standard drink = 0.6 oz pur e alcohol) [facility] Utilities Answer Date Recorded In [...] any time in the past 12 m [facility], were you homeless or living in a snf (including now)? Patient declined 11/21/2024 Sex and [...] W/ O2 SATURATION STAT 11/21/2024 1:41 AM TUBE CUTTER CULTURE, BLOOD STAT 11/21/2024 1:16 AM TUBE CUTTER LACTIC ACID (LACTATE) STAT 11/21/2024 1:12 AM TUBE CUTTER BLOOD GASES, PH VENOUS BLOOD STAT 11/21/2024 1:12 AM TUBE CUTTER CULTURE, BLOOD STAT 11/21/2024 1:12 AM TUBE CUTTER RHYTHM STRIP 11/21/2024 12:00 AM TUBE CUTTER RHYTHM STRIP 11/21/2024 12:00 AM TUBE CUTTER CRITICAL CARE Routine 11/20/2024 11:24 PM TUBE CUTTER GOLD TOP TUBE STAT 11/20/2024 10:52 PM TUBE CUTTER BLUE TOP TUBE STAT 11/20/2024 10:52 PM TUBE CUTTER CBC WITH AUTO DIFFERENTIAL STAT 11/20/2024 10:52 PM TUBE CUTTER EXTRA TUBES STAT 11/20/2024 10:52 PM TUBE CUTTER CMP (COMPREHENSIVE METABOLIC PANEL) STAT 11/20/2024 10:52 PM TUBE CUTTER COMPLETE BLOOD COUNT (CBC) WITH DIFF STAT 11/20/2024 10:52 PM TUBE CUTTER POCT GLUCOSE STAT 11/20/2024 2:[address] SOFT TISSUE NECK W CONTRAST Stat with Interpretation 11/20/2024 1:09 AM TUBE CUTTER GOLD TOP TUBE STAT 11/20/2024 12:04 AM TUBE CUTTER BLUE TOP TUBE STAT 11/20/2024 12:04 AM TUBE CUTTER CBC WITH AUTO DIFFERENTIAL STAT 11/20/2024 12:04 AM TUBE CUTTER EXTRA TUBES STAT 11/20/2024 12:04 AM TUBE CUTTER C-REACTIVE PROTEIN (CRP) QUANT STAT 11/20/2024 12:04 AM TUBE CUTTER ERYTHROCYTE SEDIMENTATION RATE (ESR) STAT 11/20/2024 12:04 AM TUBE CUTTER CMP (COMPREHENSIVE METABOLIC PANEL) STAT 11/20/2024 12:04 AM TUBE CUTTER COMPLETE BLOOD COUNT (CBC) WITH DIFF STAT 11/20/2024 12:04 AM TUBE CUTTER XR CHEST SINGLE VIEW PORTABLE STAT 11/19/2024 11:47 PM TUBE CUTTER GROUP A STREP BY PCR STAT 11/19/2024 11:21 PM TUBE CUTTER RSV,SARS-COV-2,INFL UENZA A&B BY PCR STAT 11/19/2024 11:21 PM TUBE CUTTER from Last 3 Months Results * (ABNORMAL) CBC with Auto Differential (11/28/2024 9:35 AM CDT) Only the most recent of6 resultswithin the time period is included. WBC 6.12 4.00 - 12.00 10(3)/mcL 11/28/2024 9:59 AM CDT [facility] RBC 4.83 4.40 - 5.80 10(6)/mcL 11/28/2024 9:59 AM CDT [facility] HEMOGLOBIN (HGB) 15.5 13.0 - 16.5 g/dL 11/28/2024 9:59 AM CDT [facility] HEMATOCRIT (HCT) 44.3 38.0 - 50.0 % 11/28/2024 9:59 AM CDT [facility] MCV 91.7 82.0 - 96.0 fL 11/28/2024 9:59 AM CDT [facility] MCH 32.1(H) 26.0 - 32.0 pg 11/28/2024 9:59 AM CDT [facility] MCHC 35.0 31.0 - 36.0 g/dL 11/28/2024 9:59 AM CDT [facility] PLATELET COUNT 327 140 - 440 10(3)/mcL 11/28/2024 9:59 AM CDT [facility] RDW 11.5(L) 11.8 - 15.5 % 11/28/2024 9:59 AM CDT [facility] MPV 8.6 8.0 - 12.6 fL 11/28/2024 9:59 AM CDT [facility] NEUTROPHILS 73.4(H) 40.0 - 68.0 % 11/28/2024 9:59 AM CDT [facility] LYMPHOCYTES 15.7(L) 19.0 - 49.0 % 11/28/2024 9:59 AM CDT [facility] MONOCYTES 8.5 3.0 - 13.0 % 11/28/2024 9:59 AM CDT [facility] EOSINOPHILS 1.6 0.0 - 8.0 % 11/28/2024 9:59 AM CDT [facility] BASOPHILS 0.8 0.0 - 1.0 % 11/28/2024 9:59 AM CDT [facility] ABSOLUTE NEUTROPHILS 4.49 1.40 - 5.30 10(3)/mcL 11/28/2024 9:59 AM CDT [facility] ABSOLUTE LYMPHOCYTES 0.96 0.90 - 3.30 10(3)/mcL 11/28/2024 9:59 AM CDT [facility] ABSOLUTE MONOCYTES 0.52 0.10 - 0.90 10(3)/[facility] 11/28/2024 9:59 AM CDT [facility] ABSOLUTE EOSINOPHIL 0.10 0.00 - 0.50 10(3)/[facility] 11/28/2024 9:59 AM CDT [facility] ABSOLUTE BASOPHILS 0.05 0.00 - 0.10 10(3)/[facility] 11/28/2024 9:59 AM CDT [facility] NRBC PER 100 WBC 0 11/29/19 25 9:59 AM CDT [facility] Blood Venipuncture / Unknown 11/28/2024 9:35 AM CDT 11/28/2024 9:50 AM CDT us Naveed Hendricks MD HEMATOLOGY ORDERABLES Machelle l Result [facility] [address] [place] [address] * (ABNORMAL) Comprehensive Metabolic Panel (Cmp) [id number] (11/28/2024 9:35 AM CDT) Only the most recent of3 resultswithin the time period is included. SODIUM 136 136 - 145 mmol/L 11/28/2024 10:13 AM CDT [facility] POTASSIUM 4.4 3.5 - 5.1 mmol/L 11/28/2024 10:13 AM CDT [facility] CHLORIDE 104 98 - 107 mmol/L 11/28/2024 10:13 AM CDT [facility] CO2, VENOUS 22 22 - 30 mmol/L 11/28/2024 10:13 AM CDT [facility] ANION GAP 14.4 <18.0 mmol/L 11/28/2024 10:13 AM CDT [facility] GLUCOSE 308(H) 70 - 99 mg/dL 11/28/2024 10:13 AM CDT [facility] BUN 10 9 - 21 mg/dL 11/28/2024 10:13 AM CDT [facility] CREATININE, BLOOD 0.84 0.70 - 1.30 mg/dL 11/28/2024 10:13 AM CDT [facility] BUN/CREATININE RATIO 12 12 - 20 ratio 11/28/2024 10:13 AM CDT [facility] TOTAL PROTEIN 6.6 6.0 - 8.0 g/dL 11/28/2024 10:13 AM CDT [facility] ALBUMIN 3.7 3.5 - 5.0 g/dL 11/28/2024 10:13 AM CDT [facility] A/G RATIO 1.3 1.0 - 2.2 11/28/2024 10:13 AM CDT [facility] CALCIUM 8.7 8.7 - 10.5 mg/dL 11/28/2024 10:13 AM CDT [facility] T BILI 0.5 0.2 - 1.2 mg/dL 11/28/2024 10:13 AM CDT [facility] SGOT (AST) 18 <43 U/L 11/28/2024 10:13 AM CDT [facility] SGPT (ALT) 26 <56 U/L 11/28/2024 10:13 AM CDT [facility] ALKALINE PHOSPHATASE 38(L) 40 - 150 U/L 11/28/2024 10:13 AM CDT [facility] GFR, ESTIMATED >60 >=60 11/28/2024 10:13 AM CDT [facility] Comment: Creatinine Clearance is the preferred criteria for selecting drug dose adjustments in renally impaired patients. The GFR is provided as additional pertinent clinical information. GFR is reported in mL/min/1.73 sq m. Calculation based on the Chronic Kidney Disease Epidemiology Collaboration (CKD- EPI) equation refit without adjustment for race. GFR, EST. >60 >=60 025 10:13 AM CDT [facility] GFR, EST. NONAFRICAN >60 >=60 11/28/2024 10:13 AM CDT [facility] Blood Venipuncture / Unknown 11/28/2024 9:35 AM CDT 11/28/2024 9:50 AM CDT us Naveed Hendricks MD CHEMISTRY ORDERABLES Final Result Performing Organization Address City/[facility]/ZIP Co de Phone Number [facility] [address] [place] [address] * (ABNORMAL) POCT Glucose (11/28/2024 9:08 AM CDT) Only the most recent of16 resultswithin the time period is included. GLUCOSE,BEDSID E POCT 266(H) 70 - 99 mg/dL 11/28/2024 9:14 AM CDT [facility] Comment:Patient RN Performed Blood 11/28/2024 9:08 AM CDT 11/28/2024 9:13 AM CDT us None Provider POINT OF CARE TESTING Final Resu lt [facility] [address] [place] [address] * Phosphorus (PO4), Serum (11/23/2024 4:08 AM CDT) Only the most recent of4 resultswithin the time period is included. PHOSPHORUS 3.2 2.5 - 4.5 mg/dL 11/23/2024 4:50 AM CDT [facility] Blood Venipuncture / Unknown 11/23/2024 4:08 AM CDT 11/23/2024 4:18 AM CDT us Tanya Hackett ACUTE CARE NURSE, PAINTER AND DECORATOR APPRENTICE CHEMISTRY ORDERABLES Machelle l Result Performing Organization Address City/[facility] Co de Phone Number [facility] [address] [place] [address] * Magnesium (Mg) (11/23/2024 4:08 AM CDT) Only the most recent of3 resultswithin the time period is included. MAGNESIUM 2.0 1.6 - 2.6 mg/dL 11/23/2024 4:50 AM CDT [facility] Comment: Specimen is hemolyzed. In vitro hemolysis could affect results. Clinical correlation advised. Blood Venipuncture / Unknown 11/23/2024 4:08 AM CDT 11/23/2024 4:18 AM CDT us Laureen Weaver ACUTE CARE NURSE, PAINTER AND DECORATOR APPRENTICE CHEMISTRY ORDERABLES Final Result [facility] [address] [place] [address] * Lipid Panel (11/23/2024 4:08 AM CDT) CHOLESTEROL 147 <200 mg/dL 11/23/2024 9:32 AM CDT [facility] TRIGLYCERIDES 112 <150 mg/dL 11/23/2024 9:32 AM CDT [facility] HDL CHOLESTEROL 44 >40 mg/dL 9:32 AM CDT [facility] LDL 81 <130 mg/dL 11/23/2024 9:32 AM CDT [facility] VLDL 22 10 - 50 mg/dL 11/23/2024 9:32 AM CDT [facility] CHOL/HDL RATIO 3.3 0.0 - 4.4 11/23/2024 9:32 AM CDT [facility] NON-HDL CHOLESTEROL 103 <130 mg/dL 11/23/2024 9:32 AM CDT [facility] Blood Venipuncture / Unknown 11/23/2024 4:08 AM CDT 11/23/2024 4:18 AM CDT us Nhan Medrano MD CHEMISTRY ORDERABLES Final Res ult [facility] [address] [place] [address] * (ABNORMAL) BMP with Ca, Total (11/23/2024 4:08 AM CDT) Only the most recent of4 resultswithin the time period is included. SODIUM 139 136 - 145 mmol/L 11/23/2024 4:50 AM CDT [facility] POTASSIUM 3.7 3.5 - 5.1 mmol/L 11/23/2024 4:50 AM CDT [facility] CHLORIDE 108(H) 98 - 107 mmol/L 11/23/2024 4:50 AM CDT [facility] CO2, VENOUS 24 22 - 30 mmol/L 11/23/2024 4:50 AM CDT [facility] ANION GAP 10.7 <18.0 mmol/L 11/23/2024 4:50 AM CDT [facility] GLUCOSE 154(H) 70 - 99 mg/dL 11/23/2024 4:50 AM CDT [facility] BUN 9 9 - 21 mg/dL 11/23/2024 4:50 AM CDT [facility] CREATININE, BLOOD 0.66(L) 0.70 - 1.30 mg/dL 11/23/2024 4:50 AM CDT [facility] BUN/CREATININE RATIO 14 12 - 20 ratio 11/23/2024 4:50 AM CDT [facility] CALCIUM 8.9 8.7 - 10.5 mg/dL 11/23/2024 4:50 AM CDT [facility] GFR, ESTIMATED >60 >=60 11/23/2024 4:50 AM CDT [facility] Comment: Creatinine Clearance is the preferred criteria for selecting drug dose adjustments in renally impaired patients. The GFR is provided as additional pertinent clinical information. GFR is reported in mL/min/1.73 sq m. Calculation based on the Chronic Kidney Disease Epidemiology Collaboration (CKD- EPI) equation refit without adjustment for race. GFR, EST. >60 >=60 025 4:50 AM CDT [facility] GFR, EST. NONAFRICAN >60 >=60 11/23/2024 4:50 AM CDT [facility] Blood Venipuncture / Unknown 11/23/2024 4:08 AM CDT 11/23/2024 4:18 AM CDT us Laureen Weaver ACUTE CARE NURSE, PAINTER AND DECORATOR APPRENTICE CHEMISTRY ORDERABLES Final Result [facility] [address] [place] [address] * RHYTHM STRIP (11/23/2024 12:00 AM CDT) Only the most recent of7 resultswithin the time period is included. 11/23/2024 us Provider Scan IMG ECG ORDERABLES Final Result RESULTING AGENCY * C Peptide (11/22/2024 9:57 AM CDT) [facility] C PEPTIDE 1.43 0.78 - 5.19 ng/mL 11/22/2024 5:40 PM CDT [facility] Blood Venipuncture / Unknown 11/22/2024 9:57 AM CDT 11/22/2024 10:03 AM CDT us Nhan Medrano MD CHEMISTRY ORDERABLES Final Res ult [facility] [address] [place] [address], * GROUP A STREP BY PCR (11/21/2024 9:17 AM CDT) Only the most recent of2 resultswithin the time period is included. [facility] GROUP A STREP BY PCR NOT DETECTED NOT DETECTED 11/21/2024 10:05 AM CDT [facility] Swab STRUCTURE OF ANTERIOR PORTION OF NECK / Unknown Non-Phlebotomy Collection / Unknown 11/21/2024 9:17 AM CDT 11/21/2024 9:40 AM CDT us Tremaine Muñoz MD MICROBIOLOGY - GENERAL ORDERA BLES Final Result Performing Organization Address City/[facility]/ZIP Co de Phone Number [facility] [address] [place] [address] * MRSA NASAL PCR (11/21/2024 7:57 AM CDT) [facility] MRSA PCR RESULT Negative Negative, Invalid 11/21/2024 9:11 AM CDT [facility] Other NASOPHARYNGEAL SWAB / Unknown Non-Phlebotomy Collection / Unknown 11/21/2024 7:57 AM CDT 11/21/2024 7:57 AM CDT us Cyrus العراقي MD MICROBIOLOGY - GENERAL O RDERABLES Final Result [facility] [address] [place] [address] * (ABNORMAL) Ur Acetone Qlt (11/21/2024 3:38 AM CDT) Pathologist [facility] URINE KETONES 150 mg/dL(A) Negative 11/21/2024 3:52 AM CDT [facility] MACRO ONLY PROCEDURE 11/21/2024 3:52 AM CDT [facility] Urine Non-Phlebotomy Collection / Unknown 11/21/2024 3:38 AM CDT 11/21/2024 3:46 AM CDT John Henry MD URINE ORDERABLES Final Re sult Performing Organization Address [facility] Co de Phone Number [facility] [address] [place] [address] * (ABNORMAL) Hemoglobin A1C (11/21/2024 3:34 AM CDT) Pathologist [facility] HGB-A1C 13.1(H) 4.0 - 6.0 % 11/21/2024 4:11 AM CDT [facility] Est Average Glucose 329.3 mg/dL 11/21/2024 4:11 AM CDT [facility] Blood Venipuncture / Unknown 11/21/2024 3:34 AM CDT 11/21/2024 3:46 AM CDT Narrative [facility] - 11/21/2024 4:11 AM CDT HEMOGLOBIN A1C: DIABETIC PATIENTS: WELL-CONTROLLED: 6.2 - 7.0 INTERMEDIATE WELL-CONTROLLED: 7.0 - 9.0 POORLY-CONTROLLED: >9.0 Specimens containing greater than 5% of Hemoglobin F may result in lower than expected % HbA1C results. John Henry MD CHEMISTRY ORDERABLES Machelle l Result Performing Organization Address City/[facility]/ZIP Co de Phone Number [facility] [address] [place] [address] * (ABNORMAL) ACETONE QUAL (11/21/2024 3:25 AM CDT) ACETONE Small amount(A) Negative 11/21/2024 4:05 AM CDT [facility] Blood Venipuncture / Unknown 11/21/2024 3:25 AM CDT 11/21/2024 3:46 AM CDT us John Henry MD CHEMISTRY ORDERABLES Machelle l Result [facility] [address] [place] [address] * (ABNORMAL) Blood Gases, Venous w/ O2 Saturation (11/21/2024 1:41 AM TUBE CUTTER) O2 STATUS UNKNOWN 11/21/2024 1:44 AM TUBE CUTTER [facility] PH VENOUS 7.32(L) 7.34 - 7.43 11/21/2024 1:44 AM TUBE CUTTER [facility] PCO2 (VENOUS) 33(L) 41 - 51 mmHg 11/21/2024 1:44 AM TUBE CUTTER [facility] PO2 VENOUS 54(H) 30 - 50 mmHg 11/21/2024 1:44 AM TUBE CUTTER [facility] O2 SAT MIRELA, MEASURED 81 60 - 85 % 11/21/2024 1:44 AM TUBE CUTTER [facility] BICARBONATE 17.0(L) 22.0 - 26.0 mmol/L 11/21/2024 1:44 AM TUBE CUTTER [facility] BASE VENOUS -7.4(L) -2.0 - 3.0 mmol/L 11/21/2024 1:44 AM TUBE CUTTER [facility] MIRELA Blood Gas Venipuncture / Unknown 11/21/2024 1:41 AM TUBE CUTTER 11/21/2024 1:41 AM TUBE CUTTER Narrative [facility] - 11/21/2024 1:44 AM TUBE CUTTER Interpretation - The usual approach to interpreting [...] ORDERABLES Machelle l Result Performing Organization Address City/[facility]/ZIP Co de Phone Number [facility] [address] [place] [address] * Culture, Blood (11/21/2024 1:16 AM TUBE CUTTER) Only the most recent of2 resultswithin the time period is included. CULTURE RESULTS NO GROWTH WITHIN 5 DAYS, FINAL RESULT 11/26/2024 3:01 AM CDT [facility] Culture BLOOD SPECIMEN / Unknown Venipuncture / Unknown 11/21/2024 1:16 AM TUBE CUTTER 11/21/2024 1:24 AM TUBE CUTTER John Henry MD MICROBIOLOGY - GENERAL OR DERABLES Final Result [facility] [address] [place] [address], [place] * (ABNORMAL) Blood Gases, PH Venous Blood (11/21/2024 1:12 AM TUBE CUTTER) PH VENOUS 7.32(L) 7.34 - 7.43 11/21/2024 1:35 AM TUBE CUTTER [facility] MIRELA Blood Gas Venipuncture / Unknown 11/21/2024 1:12 AM TUBE CUTTER 11/21/2024 1:24 AM TUBE CUTTER John Henry MD CHEMISTRY ORDERABLES Machelle l Result Performing Organization Address [facility] Co de Phone Number [facility] [address] [place] [address] * Lactic Acid (Lactate) (11/21/2024 1:12 AM TUBE CUTTER) LACTIC ACID 0.9 0.7 - 2.0 mmol/L 11/21/2024 1:55 AM TUBE CUTTER [facility] Comment: Specimen is hemolyzed. In vitro hemolysis could affect results. Clinical correlation advised. Blood Venipuncture / Unknown 11/21/2024 1:12 AM TUBE CUTTER 11/21/2024 1:28 AM TUBE CUTTER John Henry MD CHEMISTRY ORDERABLES Machelle l Result Performing Organization Address City/[facility] Co de Phone Number [facility] [address] [place] [address] * Critical Care (11/20/2024 11:24 PM TUBE CUTTER) Narrative John Henry MD - 11/20/2024 11:24 PM TUBE CUTTER John Henry MD 11/22/2024 2:21 AM Critical [...] * Gold Top Tube (11/20/2024 10:52 PM TUBE CUTTER) Only the most recent of2 resultswithin the time period is included. Blood No Phlebotomy Charged / Unknown 11/20/2024 10:52 PM TUBE CUTTER 11/20/2024 11:21 PM TUBE CUTTER John Henry MD CHEMISTRY ORDERABLES Machelle l Result Performing Organization Address [facility] Co de Phone Number [facility] [address] [place] [address] * Blue Top Tube (11/20/2024 10:52 PM TUBE CUTTER) Only the most recent of2 resultswithin the time period is included. Blood No Phlebotomy Charged / Unknown 11/20/2024 10:52 PM TUBE CUTTER 11/20/2024 11:21 PM TUBE CUTTER John Henry MD HEMATOLOGY ORDERABLES Fin al Result Performing Organization Address [facility] Co de Phone Number [facility] [address] [place] [address] * CT SOFT TISSUE NECK W CONTRAST (11/20/2024 1:09 AM TUBE CUTTER) Anatomical Region Laterality Modality Spine N/A Computed Tomogra phy 11/20/2024 1:38 AM TUBE CUTTER Impressions 11/20/2024 1:41 AM TUBE CUTTER IMPRESSION: Fullness of the soft tissues in [...] ear. Recommend clinical correlation for possible otomastoiditis. [id number] paranasal sinus disease. Narrative 11/20/2024 1:41 AM TUBE CUTTER EXAM DESCRIPTION: CT SOFT TISSUE NECK W [...] out the ethmoid air cells. There is [id number] right and mild left mucosal thickening of [...] Tana Rome M.D. SN: SN Report ID: [id number] Reading Location: [id number] Procedure Note Tana Rome MD - 11/20/2024 [...] out the ethmoid air cells. There is [id number] right and mild left mucosal thickening of [...] Tana Rome M.D. SN: SN Report ID: [id number] Reading Location: [id number] IMPRESSION: Fullness of the soft tissues in [...] ear. Recommend clinical correlation for possible otomastoiditis. [id number] paranasal sinus disease. John Henry MD IMG CT ORDERABLES Final R esult * (ABNORMAL) Sed Rate (Esr) [id number] (11/20/2024 12:04 AM TUBE CUTTER) ESR (SED RATE, ERYTHROCYTE SEDIMENTATION RATE) 25(H) <15 mm/h 11/20/2024 12:14 AM TUBE CUTTER [facility] Comment: Patients presenting with increased level of fibrinogen, gamma globulins, or abnormally shaped RBCs could affect the results for the erythrocyte sedimentation rate (ESR). Results should be clinically correlated. Blood Venipuncture / Unknown 11/20/2024 12:04 AM TUBE CUTTER 11/20/2024 12:12 AM TUBE CUTTER John Henry MD HEMATOLOGY ORDERABLES Fin al Result [facility] [place] [address] * (ABNORMAL) C-Reactive Protein Qnt (Crp) (11/20/2024 12:04 AM TUBE CUTTER) C-REACTIVE PROTEIN 3.09(H) <0.50 mg/dL 11/20/2024 12:37 AM TUBE CUTTER [facility] Blood Venipuncture / Unknown 11/20/2024 12:04 AM TUBE CUTTER 11/20/2024 12:12 AM TUBE CUTTER us John Henry MD CHEMISTRY ORDERABLES Machelle l Result [facility] [place] [address] * XR CHEST SINGLE VIEW PORTABLE (11/19/2024 11:47 PM TUBE CUTTER) Anatomical Region Laterality Modality Chest N/A Digital Radiogra phy 11/19/2024 11:5 6 PM TUBE CUTTER Impressions 11/19/2024 11:59 PM TUBE CUTTER IMPRESSION: No acute cardiopulmonary abnormality. Narrative 11/19/2024 11:59 PM TUBE CUTTER EXAM DESCRIPTION: XR CHEST SINGLE VIEW PORTABLE [...] Ashley Estrada M.D. AT: AT Report ID: [id number] Reading Location: [id number] Procedure Note Ashley Estrada MD - 11/19/2024 [...] Ashley Estrada M.D. AT: AT Report ID: [id number] Reading Location: [id number] IMPRESSION: No acute cardiopulmonary abnormality. John Henry MD IMG DIAGNOSTIC ORDERABLES Final Result * RSV,SARS-COV-2,INFLUENZA A&B BY PCR (11/19/2024 11:21 PM TUBE CUTTER) FLU A Negative Negative, Error 11/20/2024 12:07 AM TUBE CUTTER [facility] FLU B Negative Negative 11/20/2024 12:07 AM TUBE CUTTER [facility] RESP SYNC VIRUS Negative Negative 12:07 AM TUBE CUTTER [facility] SARSCOV2 NOT DETECTED (Reference Range for this test is Not Detected) 11/20/2024 12:07 AM TUBE CUTTER [facility] Comment:This test was perfor med by a Reverse [employer] Front End Developer PCR Method. Swab NASOPHARYNGEAL WASHINGS / Unknown Non-Phlebotomy Collection / Unknown 11/19/2024 11:21 PM TUBE CUTTER 11/19/2024 11:27 PM TUBE CUTTER John Henry MD MICROBIOLOGY - GENERAL OR DERABLES Final Result [facility] [place] [address] from Last 3 Months Insurance [facility] Advance Directives * Full Code (Latest Code Status on File) Date Activated Date Inactivated Comments 11/21/2024 6:29 AM CPR-Full Treatm ent: FULL ARREST: Attempt Resuscitation/CPR wit intubation and mechanical ventilation. PRE-ARREST: Use entire range of life support measures to stabilize the patient. Care Teams Exchange Trouble Shooter Relationship Specialty [place] [id number] [place] [address] PCP - General Internal Medicine 07/03/18
[2025-01-21] MEDS: DOXYCYCLINE HYCLATE 100 MG TABLET PO (22:07)
[2025-01-21] MEDS: TETANUS,DIPHTHERIA,AC PERTUSSIS ADULT (0.5 ML) BOOSTRIX IM (22:07)
[2025-01-21] MEDS: cefTRIAXone 1 GM VIAL 0.5 GM IM (22:07)
[2025-01-21] MEDS: WATER, STERILE FOR INJECTION 10 ML VIAL XX (22:08)
[2025-01-21 23:26] LABS: Trichomonas Vag PCR NOT DETECTED (NOT DETECTE)
[2025-01-21 23:41] VITALS: BP 165/88; PULSE 86; RESP 15; O2SAT 99
[2025-01-21 23:49] LABS: Chlamydia trachomatis NOT DETECTED (NOT DETECTE); Neisseria gonorrhoeae PCR NOT DETECTED (NOT DETECTE)
--- NOTE | 2025-01-22 00:53 | ED_ITS ---
HPI - Wound/Laceration General Chief Complaint: Wound/Laceration Stated Complaint: Right index and middle finger wound Time Seen by Provider: 01/21/25 20:31 History of Present Illness HPI narrative: Patient is a 49-year-old male who presents to the ER with complaints of 2nd digit pain on his right hand. He reports he smashed it in between 2 pieces of work equipment on Friday, 5 days ago. Patient reports he has been able to tolerate the pain, but he noticed his finger becoming more red, with pus forming near the base of the finger. He denies any recent fevers, decreased range of motion or wrist pain. Patient endorses a history of diabetes, high blood pressure and osteomyelitis. Related Data Allergies Allergy/AdvReac Type Severity Reaction Status Date / Time No Known Allergies Allergy Verified 01/21/25 20:24 Review of Systems Review of Systems: All systems reviewed & are unremarkable except as noted in HPI and below Exam Narrative: GENERAL: Well appearing, well-nourished, non-toxic, in no acute distress. HEAD: Normocephalic, atraumatic. NECK: Supple. No adenopathy, no masses. RESPIRATORY: Airway patent, respirations nonlabored. Clear to auscultation bilaterally, no rales, rhonchi, wheezing. CARDIOVASCULAR: Regular rate and rhythm without murmurs, rubs, or gallops. Peripheral pulses 2+ and equal bilaterally. ABDOMINAL: Soft, nontender, nondistended, no hepatosplenomegaly. Normoactive BS. MUSCULOSKELETAL: Moves all extremities. Strength/ROM intact without gross deformities. SKIN: Warm, dry, normal color. No rashes. + swelling and redness to R 2nd digit, pus underneath fingernail and at base of fingernail NEURO: A&O X3. Speech clear. Cranial nerves II-XII intact. No ataxic movements. PSYCHIATRIC: Appropriate mood and affect. Normal interaction. Course Vital Signs Vital signs: Vital Signs Temperature 36.4 C L 01/21/25 20:20 Pulse Rate 100 01/21/25 20:20 Respiratory Rate 01/21/25 20:20 Blood Pressure 179/99 H 01/21/25 20:20 Pulse Oximetry 98 01/21/25 20:20 Oxygen Delivery Room Air 01/21/25 20:20 Temperature 36.4 C L 01/21/25 20:20 Pulse Rate 100 01/21/25 20:20 Respiratory Rate 20 01/21/25 20:20 Blood Pressure 179/99 H 01/21/25 20:20 Pulse Oximetry 98 01/21/25 20:20 Oxygen Delivery Room Air 01/21/25 20:20 Procedures Abscess I/D hand: Date of Incision: 01/22/25 Time of Incision: 01:08 Side (if applicable): right Local Anesthetic: lidocaine 1% Amount of anesthesia used (mL): 7 Technique: incised with #11 blade Amount of fluid expressed (mL): 3 Irrigation: Yes Packing used?: none I&D Results: Pus and Blood MDM - Wound/Laceration MDM Narrative Medical decision making narrative: Patient is a 49-year-old male who presents to the ER with complaints of 2nd digit pain on his right hand. He reports he smashed it in between 2 pieces of work equipment on Friday, 5 days ago. Patient reports he has been able to tolerate the pain, but he noticed his finger becoming more red, with pus forming near the base of the finger. He denies any recent fevers, decreased range of motion or wrist pain. Patient endorses a history of diabetes, high blood pressure and osteomyelitis. Labs Ordered: STD testing Imaging Ordered: Right hand x-ray Medications Ordered: Doxycycline 100 mg, ceftriaxone 0.5 mg IM, Tdap IM, lidocaine infiltrate Results: Patient's STD results were negative for gonorrhea, chlamydia, or Trichomonas. Pt's x-ray indicates Fracture of the distal phalanx of the second finger Diagnosis: Right 2nd digit paronychia, right 2nd digit fracture Patient Education/Shared MDM: Results of imaging and lab work shared with patient. He endorses improvement of symptoms following parenychia drainage. Patient strongly advised to complete his full dose of antibiotics and follow-up with his PCP as soon as possible. He will be discharged home with a prescription for Doxycycline. Pt should also follow up with hand specialist, Dr. Foreman, and wear his splint until then. Strict return precautions provided. Patient verbalized understanding and is in agreement with plan. Vital signs stable at time of discharge. All questions answered. Differential Diagnosis Differential diagnosis: Likely laceration, abscess, avulsion of skin and other (R finger fracture) Lab Data Attestation: I reviewed the patient's lab results. Labs: Lab Results 01/21/25 Range/Units 22:13 C. trachomatis (PCR) Not detected (NOT DETECTE) N. gonorrhoeae (PCR) Not detected (NOT DETECTE) T. vaginalis (PCR) Not detected (NOT DETECTE) Imaging Data Attestation: I personally reviewed and interpreted this imaging study as follows: Radiologist's impression: Impressions Hand X-Ray 01/21/25 21:28 IMPRESSION: Fracture of the distal phalanx of the second finger Discharge Plan Discharge Clinical Impression: Paronychia of finger of right hand, Fracture of phalanx of digit of hand Patient Disposition: Home Condition: Stable Instructions: Antibiotic Form, Finger Fracture (ED), Paronychia (ED) Additional Instructions: Please return to the ER with any worsening symptoms. Follow-up with primary care provider as soon as possible. Take all medications as prescribed, including regularly scheduled medications. Complete your full dose of antibiotics. Patient Language: Djib[place]ian Prescriptions: New doxycycline monohydrate 100 mg capsule 100 mg PO BID Qty: 20 0RF No Action metronidazole 500 mg tablet 2,000 mg PO ONCE Qty: 4 0RF Follow-up/Referrals: Codey Rueda MD [Physician] - (hand specialist) Mark Anthony,Darin Peña MD [Primary Care Provider] - Stand Alone Forms: Work/School Release IP Time of Disposition: 01:08
[2025-01-22 01:41] VITALS: BP 170/88; PULSE 81; RESP 16; TEMP 36.6; O2SAT 99
[2025-01-22 01:42] VITALS: BP 170/88; PULSE 81; RESP 16; TEMP 36.6; O2SAT 99
== END 2025-01-22 01:44 | disposition home or self-care (01) ==
PROVIDERS: Student in an Organized Health Care Education/Training Program; Emergency Provider Registered Nurse; PCP Internal Medicine Geriatric Medicine
DX: L03.011 Cellulitis of right finger (principal); S62.630A Displaced fracture of distal phalanx of right index finger, initial encounter for closed fracture; W23.0XXA Caught, crushed, jammed, or pinched between moving objects, initial encounter; Z23 Encounter for immunization
CPT/HCPCS: 10060; 29130; 73130; 87491; 87591; 87661; 90471; 90715; 96372; 99284; A9270; J0696

== ENCOUNTER 2025-08-31 16:26 | Emergency (ER) | payer OTHER, SELFPAY ==
[2025-08-31 16:37] VITALS: BP 145/87; PULSE 109; RESP 20; TEMP 37; O2SAT 97
--- NOTE | 2025-08-31 16:52 | ED.EYEPROB ---
HPI - Eye Problem General Chief complaint: Extremity Problem,Nontraumatic Stated complaint: L foot / ankle swollen possible pink eye Time Seen by Provider: 08/31/25 16:39 Source: patient and RN notes reviewed Mode of arrival: ambulatory Limitations: no limitations History of Present Illness HPI Narrative: 50-year-old male patient presents today complaining of burning and irritation to the right eye with some redness and mild blurred vision since yesterday. States he has been rubbing the eye after the irritation started. Denies pain or foreign body sensation. Wears reader is a but no contacts. Patient also reporting swelling to the left lower leg for several months that has been worsening progressively. Patient has an ankle monitoring bracelet that cannot be removed and is concerned because it is becoming very tight. He can no longer fit a sock under the braclet to separate the skin from the plastic while at work. He has tried contacting his completion engineer and the courthouse without help. He has seen his PCP a few months ago regarding the edema in his lower leg, who told him to contact the authorities. Related Data Home Medications ?Medication ?Instructions ?Recorded ?Confirmed ?Last Taken ?Type glipizide 10 mg tablet, extended mg PO 08/31/25 Unknown History release 24 hr Allergies Allergy/AdvReac Type Severity Reaction Status Date / Time No Known Allergies Allergy Verified 08/31/25 16:36 [facility] Past Medical History Medical History (Updated 08/31/25 @ 17:16 by Clementine Stanton, BILLING SERVICES MANAGER, PROTECTION ANALYST) Diabetes Comments At time of signature, I have reviewed and agree with nursing past medical, surgical, social and family history unless otherwise noted. Please see nursing chart for further information. There is no relevant family history pertinent to the presenting complaint Exam Narrative: GENERAL: Well-appearing, well-nourished, and in no acute distress. HEAD: Normocephalic, atraumatic. EYES: EOMI. PERRL.Left eye normal. Right eye: Moderately injected conjunctiva with mild chemosis. Lids and lashes normal. No active drainage. Fluorescein uptake to lower eye area. See procedure note. ENT: Mucous membranes pink and moist. NECK: Normal AROM. CHEST: No respiratory distress. EXTREMITIES: Left lower leg: moderate swelling of the lower leg. Ankle monitoring device noted around the lower leg. Able to barely reach 1 finger under the band. Underneath the plastic band is moist against the skin. Unable to assess the skin under the band due to tightness. Monitor significantly indents the skin due to the edema. SKIN: Warm, dry, no rash. Capillary refill normal. Normal skin turgor. NEURO: No focal deficits. Alert and oriented x3. Gait steady. PSYCH: Normal affect. No signs of depression or anxiety. Course Course Level of Care: Express Care Visit Vital Signs Vital signs: Vital Signs Temperature 98.6 F 08/31/25 16:37 Pulse Rate 109 H 08/31/25 16:37 Respiratory Rate 20 08/31/25 16:37 Blood Pressure 145/87 H 08/31/25 16:37 Pulse Oximetry 97 08/31/25 16:37 Oxygen Delivery Room Air 08/31/25 16:37 Temperature 98.6 F 08/31/25 16:37 Pulse Rate 109 H 08/31/25 16:37 Respiratory Rate 20 08/31/25 16:37 Blood Pressure 145/87 H 08/31/25 16:37 Pulse Oximetry 97 08/31/25 16:37 Oxygen Delivery Room Air 08/31/25 16:37 Reviewed MDM MDM Narrative Medical decision making narrative: 50-year-old male patient presents today complaining of burning and irritation to the right eye with some redness and mild blurred vision since yesterday. States he has been rubbing the eye after the irritation started. Denies pain or foreign body sensation. Wears reader is a but no contacts. Patient also reporting swelling to the left lower leg for several months that has been worsening progressively. Patient has an ankle monitoring bracelet that cannot be removed and is concerned because it is becoming very tight. He can no longer fit a sock under the bracelet to separate the skin from the plastic while at work. He has tried contacting his completion engineer and the courthouse without help. Upon exam,Moderately injected conjunctiva with mild chemosis. Lids and lashes normal. No active drainage. Fluorescein uptake to lower eye area. moderate swelling of the lower leg. Ankle monitoring device noted around the lower leg. Able to barely reach 1 finger under the band. Underneath the plastic band is moist against the skin. Unable to assess the skin under the band due to tightness. Monitor significantly indents the skin due to the edema. Patient's corneal abrasion will be treated with a course of Polytrim. Recommend follow-up with his eye doctor to ensure proper healing. Also recommend patient continue to try to contact his completion engineer or court house regarding the ankle monitoring device as it can start to cause skin breakdown due to moisture and pressure. Note written to see if this may be of assistance. Patient agrees with plan. Vital signs stable. Anticipatory guidance given. Differential Diagnosis Differential Diagnosis: Conjunctivitis, corneal abrasion, lower leg edema Critical Care Time Critical Care Time Critical Care Time: No Discharge Plan Discharge Clinical Impression: Swelling of left lower extremity Abrasion of cornea, right Qualifiers: Encounter type: initial encounter Qualified Code(s): S05.01XA - Injury of conjunctiva and corneal abrasion without foreign body, right eye, initial encounter Patient Disposition: Home Condition: Stable Instructions: Corneal Abrasion (DC) Additional Instructions: A corneal abrasion was noted to your right eye. Please use the eyedrops as directed. Follow-up with an eye doctor next week to ensure proper healing. Patient Language: Ukrainian Prescriptions: New polymyxin B sulf-trimethoprim 10,000 unit- 1 mg/mL drops 1 drp RIGHT EYE QID 7 Days Qty: 10 0RF No Action glipizide 10 mg tablet extended release 24hr PO Follow-up/Referrals: UNKNOWN,DOCTOR [Primary Care Provider] Stand Alone Forms: Work/School Release IP Time of Disposition: 17:16
[2025-08-31] MEDS: FLUORESCEIN SOD 1 MG/STRIP RIGHT EYE (16:57)
[2025-08-31] MEDS: TETRACAINE HCL 0.5% OPHTH SOLN 4 ML BTL 1 DROP RIGHT EYE (16:57)
[2025-08-31] MEDS: DACRIOSE EYE IRRIGATION 118 ML BOTTLE 10 ML RIGHT EYE (16:58)
--- OUTSIDE RECORDS SUMMARY | 2025-08-31 18:22 | XMS_ITS | Clinical Summary ---
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 1 each 02/23/20 20 Active BD Insulin Syringe Ultra-Fine 1 mL 31 gauge x 5/16 syringe 1 Package as needed (blood sugar) 1 each 02/23/20 20 Active ibuprofen (ADVIL,MOTRIN) 600 mg tablet Take 1 tablet (600 mg total) by mouth every 8 (eight) hours as needed for pain 21 tablet 03/07/20 21 Active escitalopram (LEXAPRO) 20 mg tablet Take 20 mg by mouth daily 01/04/20 21 Active Ozempic 1 mg/dose (2 mg/1.5 mL) pen injector injection Inject 2 mg under the skin once a week Sundays01/09/20 21 Active metFORMIN (GLUCOPHAGE) 1,000 mg tablet TAKE 1 (ONE) TABLET BY MOUTH 2 TIMES DAILY REASONS: TYPE 2 DIABETES 01/13/20 22 Active Ozempic 2 mg/dose (8 mg/3 mL) pen injector injection Inject 2 mg under the skin once a week 04/28/20 23 Active acetaminophen-code ine (TYLENOL with CODEINE #3) 300-30 mg per tabletIndications: Acute right otitis media,Acute infective otitis externa of right ear Take 1-2 tablets by mouth every 6 (six) hours as needed for pain P.r.n. pain not relieved by naproxen alone. Take with food. Collaborating physician Cruz Cain MD 10 tablet 05/14/20 23 Active Additional Information Patient not taking.Reported on 02/23/2024 neomycin-polymyxin -HC (CORTISPORIN) 3.5-10,000-1 mg/mL-unit/mL-% otic suspensionIndicati ons:Acute infective otitis externa of right ear Administer 4 drops into the right ear 4 (four) times a day Collaborating physician Cruz Cain MD 10 mL 1 05/14/20 23 Active Additional Information Patient not taking.Reported on 02/23/2024 naproxen (NAPROSYN) 500 mg tablet Take 1 tablet (500 mg total) by mouth 2 (two) times a day with meals 30 tablet 01/11/20 24 Active Additional Information Patient not taking.Reported on 02/23/2024 lidocaine (LIDODERM) 5 % Place 1 patch on the skin daily for 14 days Remove & discard patch within 12 hours or as directed by MD. 14 patch 01/11/20 24 Active methocarbamoL (ROBAXIN) 500 mg tablet Take 1 tablet (500 mg total) by mouth 2 (two) times a day 20 tablet 01/11/20 24 Active Additional Information Patient not taking.Reported on 02/23/2024 HYDROcodone-acetam inophen (NORCO) 5-325 mg per tabletIndications: Pain Take 1 tablet by mouth every 6 (six) hours as needed for pain 12 tablet 03/11/20 24 Active papaverine-phentol amine-alprostadil (TRIMIX) solution injectionIndicatio ns:Erectile dysfunction due to arterial insufficiency Prostaglandin E1 - 8.3 mcg, Papaverine 22.5 mg, Phentolamine 1 mg in normal saline 5 cc. As instructed; titrate up prn. 5 mL 11 03/15/20 25 Active ondansetron ODT (ZOFRAN-ODT) 4 mg disintegrating tablet Dissolve 1 tablet oral every 4 hours as needed for nausea or vomiting. 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 Diabetic ulcer [...] Encounters Date Type Department Care Team Description 2025 8:59 AM [employer] - 2025 11:19 AM [facility] Emergency [facility] Emergency Department [address] [place] [id number] Kilo Kat MD Adverse effect of drug, initial encounter (Primary Dx) Discharge Disposition: Discharge to home or self care 06/27/2025 8:30 AM CDT [address] [address] from Last 3 Months Surgical History Surgery Date Site/Laterality Comments FOOT SURGERY Right knuckle and 2 bones removed Medical History Medical History Date Comments DM (diabetes mellitus) Acid reflux Type 2 diabetes mellitus Sebaceous cyst left shoulder Sleep apnea Depression [...] making you feel afraid or unsafe? Denies 2025 Sex and Gender Information Value Date Recorded Sex Assigned at Not on file Legal Sex Male 1:21 PM [employer] Gender Identity Not on file Sexual Orientation Not on file Last Filed Vital Signs Vital Sign Reading Time Taken Comments Blood Pressure 143/92 2025 11:10 AM [employer] Pulse 102 2025 11:10 AM [employer] Temperature 36.4 C (97.6 F) 2025 8:51 AM [employer] Respiratory Rate 14 2025 11:10 AM [employer] Oxygen Saturation 98% 2025 11:10 AM [employer] Inhaled Oxygen Concentration - - Weight 120.2 kg (265 lb) 2025 8:51 AM [employer] Height 195.6 cm (6' 5) 2025 8:51 AM [employer] Body Mass Index 31.42 2025 8:51 AM [employer] Plan of Treatment Health Maintenance Due Date Last Done Comments Albumin Creatinine Ratio, Urine 1977 Colon Cancer Screening-Colonoscopy 1977 Depression Screening 1977 Hepatitis C Screening 1977 Dilated Eye Exam 1977 Foot Exam 1977 Hepatitis B Screening 1995 Regular Well Visit/Exam 18-64 1995 Pneumococcal vaccine <65 (1 of 2 - PCV) 1996 Influenza Vaccine (#1) 2025 Hemoglobin A1C 12/26/2025 06/27/2025, 12/14, 05/26/2024, Additional history exists Lipid Panel 06/27/2026 06/27/2025, 12/14, 11/23/2024, Additional history exists eGFR 2026 2025, 06/15, 02/28/2025, Additional history exists DTaP/Tdap/Td Vaccine (2 - Td or Tdap) 01/21/2035 01/21/2025 Procedures Procedure Name Priority Date/Time Associated Diagnosis Comments POCT GLUCOSE DEVICE Routine 2025 1 1:11 AM [facility] [employer] MANUAL DIFFERENTIAL STAT 2025 8 :56 AM [employer] EGFR STAT 2025 8:56 AM [facility] [employer] LIPASE STAT 2025 8:56 AM [facility] [employer] COMPREHENSIVE METABOLIC PANEL STAT 2025 8:56 AM [employer] CBC WITH AUTO DIFFERENTIAL STAT 2025 8:56 AM [employer] POCT GLUCOSE DEVICE Routine 2025 8 :49 AM [employer] EGFR Routine 06/27/2025 8:34 AM CDT TOTAL TESTOSTERONE Routine 06/27/2025 8: 34 AM CDT LIPID PANEL Routine 06/27/2025 8:34 AM CDT HEMOGLOBIN A1C Routine 06/27/2025 8:34 AM CDT COMPREHENSIVE METABOLIC PANEL Routine 06/27/2025 8:34 AM CDT from Last 3 Months Results * POCT glucose (2025 11:11 AM [employer]) Glucose, POC 178 70 - 199 mg/dL Blood 2025 11:1 1 AM [employer] 2025 11:11 AM [employer] us Kilo Kat MD LAB POCT ORDERABLES - DEVICE Final Result [facility] 1 [facility] Department of Laboratories [place], [place] [id number] * eGFR (2025 8:56 AM [employer]) eGFR 86 >=60 mL/min/1. 73 m2 Comment: Interpretive Data [...] interpretive data was last reviewed 2021. Blood 2025 8:56 AM [employer] 2025 8:59 AM [employer] Kilo Kat MD LAB BLOOD ORDERABLES Final R esult Performing Organization Address City/[facility]/ZIP Co de Phone Number [facility] ([place]) 1 [facility] [employer] [place] [address] * (ABNORMAL) CBC with auto differential (2025 8:56 AM [employer]) WBC 10.05(H) 3.80 - 9.90 K/cumm Hgb 17.4 13.0 - 17.5 g/dL [facility] ([place]) Hct 50.4(H) 38.9 - 50.3 % [facility] ([place]) Plt 289 150 - 400 K/cumm [facility] ([place]) MPV 8.8(L) 9.1 - 12.3 fL [facility] ([place]) RBC 5.62 4.30 - 5.80 M/cumm [facility] ([place]) MCV 89.7 81.3 - 96.4 fL [facility] ([place]) MCH 31.0 27.1 - 33.3 pg [facility] ([place]) MCHC 34.5 32.3 - 35.7 g/dL [facility] ([place]) RDW CV 11.9 11.1 - 14.9 % [facility] ([place]) RDW SD 39.2 35.7 - 48.1 fL [facility] ([place]) NRBC abs 0.00 0.00 - 0.01 K/cumm [facility] ([place]) Blood Venous blood specimen / Unknown 2025 8:56 AM [employer] 2025 8:59 AM [employer] Kilo Kat MD LAB BLOOD ORDERABLES Final R esult Performing Organization Address City/[facility]/ZIP Co de Phone Number [facility] ([place]) 1 [facility] [employer] [place] [address] * (ABNORMAL) Manual Differential (2025 8:56 AM [employer]) Differential Manual Cells Counted 100 [facility] ([place]) Neutrophil abs 8.14(H) 1.50 - 6.50 K/cumm [facility] ([place]) Lymphocyte abs 1.41 0.80 - 3.30 K/cumm [facility] ([place]) Monocyte abs 0.50 0.20 - 0.80 K/cumm [facility] ([place]) Neutrophil pct 81.0 % [facility] ([place]) Comment: Interpretive Data Percent cell count reference ranges are not reported, since discordance with absolute values may lead to misinterpretation of CBC data. Current Interpretive Data was last revised on 2017. Lymphocyte pct 6.0 % [facility] ([place]) Comment: Interpretive Data Percent cell count reference ranges are not reported, since discordance with absolute values may lead to misinterpretation of CBC data. Current Interpretive Data was last revised on 2017. Monocyte pct 5.0 % [facility] ([place]) Comment: Interpretive Data Percent cell count reference ranges are not reported, since discordance with absolute values may lead to misinterpretation of CBC data. Current Interpretive Data was last revised on 2017. Variant lymph pct 8.0(H) 0.0 - 0.0 % [facility] ([place]) RBC morphology Present(A) [facility] ([place]) Polychromasia 3-7/HPF(A) [facility] ([place]) Hypochromasia 3-7/HPF(A) [facility] ([place]) Platelet estimate Automated Count Confirmed [facility] ([place]) Blood 2025 8:56 AM [employer] 2025 8:59 AM [employer] Kilo Kat MD LAB BLOOD ORDERABLES Edited Result - Final [facility] ([place]) 1 [facility] Department [place] [address] * Lipase (2025 8:56 AM [employer]) Lipase 42 10 - 99 Units/L Blood 2025 8:56 AM [employer] 2025 9:06 AM [employer] us Kilo Kat MD LAB BLOOD ORDERABLES Final R esult [facility] ([place]) 1 [facility] Department [place] [address] * (ABNORMAL) Comprehensive metabolic panel (2025 8:56 AM [employer]) Sodium 131(L) 135 - 145 mmol/L Potassium, pl 4.1 3.3 - 4.9 mmol/L [facility] ([place]) Chloride 93(L) 97 - 110 mmol/L [facility] ([place]) CO2 22 22 - 32 mmol/L [facility] ([place]) Anion gap 16(H) 2 - 15 mmol/L [facility] ([place]) BUN 25 6 - 25 mg/dL [facility] ([place]) Creatinine 1.07 0.80 - 1.30 mg/dL [facility] ([place]) Glucose 325(H) 70 - 199 mg/dL [facility] ([place]) Comment: Interpretive Data Fasting glucose >/= 126 [...] interpretive data was last revised 2022. Calcium 10.8(H) 8.5 - 10.3 mg/dL [facility] ([place]) Bilirubin, total 1.2 0.1 - 1.2 mg/dL [facility] ([place]) Protein, pl 7.1 6.5 - 8.5 g/dL [facility] ([place]) Albumin 4.5 3.5 - 5.0 g/dL [facility] ([place]) Alk phos 71 40 - 130 Units/L [facility] ([place]) ALT 24 7 - 55 Units/L [facility] ([place]) AST 16 10 - 50 Units/L [facility] ([place]) Blood Venous blood specimen / Unknown 2025 8:56 AM [employer] 2025 8:59 AM [employer] Kilo Kat MD LAB BLOOD ORDERABLES Final R esult [facility] ([place]) 1 [facility] [employer] [place] [address] * (ABNORMAL) POCT glucose (2025 8:49 AM [employer]) Glucose, POC 295(H) 70 - 199 mg/dL Blood 2025 8:49 AM [employer] 2025 8:49 AM [employer] Kilo Kat MD LAB POCT ORDERABLES - DEVICE Final Result Performing Organization Address City/[facility] de Phone Number [facility] ([place]) 1 [facility] [place] [address] * eGFR (06/27/2025 8:34 AM CDT) eGFR >90 >=60 mL/min/1. 73 m2 [...] interpretive data was last reviewed 2021. Blood 06/27/2025 8:34 AM CDT 06/27/2025 8:57 AM CDT Darin Hopson MD LAB BLOOD ORDERABLES Fin al Result Performing Organization Address City/[facility] Co de Phone Number [facility] ([place]) 1 [facility] [employer] [place] [address] * Total testosterone (06/27/2025 8:34 AM CDT) Testosterone 259 249 - 836 ng/dL Comment:Testing performed by : [facility], [address] [place] [address], [id number] Blood 06/27/2025 8:34 AM CDT 06/27/2025 11:04 AM CDT Darin Hopson MD LAB BLOOD ORDERABLES Fin al Result Performing Organization Address [facility] de Phone Number [facility] ([place]) [address] [place] [address] * (ABNORMAL) Hemoglobin A1c (06/27/2025 8:34 AM CDT) Hgb A1C 10.9(H) 4.0 - 5.6 % Estimated Average Glucose 266 mg/dL [facility] ([place]) Comment: The ADA recommends reporting an estimated Average Glucose (eAG) with all Hemoglobin A1c results using the equation derived from a study of 507 normal and diabetic adults. Minority populations were underrepresented and children were not included. (Diabetes Care 31:4550-5955, 2008). The eAG is not equivalent to a fasting glucose. Blood 06/27/2025 8:34 AM CDT 06/27/2025 8:57 AM CDT Darin Hopson MD LAB BLOOD ORDERABLES Fin al Result [facility] [place]) 1 [facility] Department [place] [address] * Lipid panel (06/27/2025 8:34 AM CDT) Cholesterol 153 30 - 199 mg/dL Comment: Interpretive Data [...] Data was last revised on 2018. Triglycerides 81 <=149 mg/dL [facility] ([place]) Comment: Interpretive Data Ages < or = [...] Data was last revised on 2018. HDL 51 >=40 mg/dL [facility] ([place]) Comment: Interpretive Data Ages < or = [...] was last revised on 2018. LDL, calculated 87 <=129 mg/dL [facility] ([place]) Comment: Interpretive Data Ages < or = [...] was last revised on 2024. Non-HDL Cholesterol 102 mg/dL [facility] ([place]) Comment: Interpretive Data Ages < or = [...] last revised on 2018. Chol/HDL ratio 3 [facility] ([place]) Blood 06/27/2025 8:34 AM CDT 06/27/2025 8:57 AM CDT us Darin Hopson MD LAB BLOOD ORDERABLES Fin al Result [facility] ([place]) 1 [facility] Department [place] [address] * (ABNORMAL) Comprehensive metabolic panel (06/27/2025 8:34 AM CDT) Sodium 135 135 - 145 mmol/L Potassium, pl 4.5 3.3 - 4.9 mmol/L [facility] ([place]) Chloride 100 97 - 110 mmol/L [facility] ([place]) CO2 25 22 - 32 mmol/L [facility] ([place]) Anion gap 10 2 - 15 mmol/L [facility] ([place]) BUN 11 6 - 25 mg/dL [facility] ([place]) Creatinine 0.67(L) 0.80 - 1.30 mg/dL [facility] ([place]) Glucose 286(H) 70 - 199 mg/dL [facility] ([place]) Comment: Interpretive Data Fasting glucose >/= 126 [...] interpretive data was last revised 2022. Calcium 9.3 8.5 - 10.3 mg/dL [facility] ([place]) Bilirubin, total 0.6 0.1 - 1.2 mg/dL [facility] ([place]) Protein, pl 7.0 6.5 - 8.5 g/dL [facility] ([place]) Albumin 4.3 3.5 - 5.0 g/dL [facility] ([place]) Alk phos 53 40 - 130 Units/L [facility] ([place]) ALT 24 7 - 55 Units/L [facility] ([place]) AST 17 10 - 50 Units/L [facility] ([place]) Blood 06/27/2025 8:34 AM CDT 06/27/2025 8:57 AM CDT us Darin Hopson MD LAB BLOOD ORDERABLES Fin al Result [facility] ([place]) 1 [facility] Department [place] [address] from Last [address] [place] [address] [employer] SIG [id number] Advance Directives For more information, please contact: [phone] * Full Code (Latest Code Status on File) Date Activated Date Inactivated Comments 05/08/2021 2:43 AM 05/09/2021 6:43 PM Care Teams 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
--- OUTSIDE RECORDS SUMMARY | 2025-08-31 18:22 | XMS_ITS | Clinical Summary ---
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
--- OUTSIDE RECORDS SUMMARY | 2025-08-31 18:22 | XMS_ITS | Clinical Summary ---
Author Organization [facility] Address [address] [place] [address] Phone Care Team Providers Care Director Internal Communications Name Role Phone Darin Huizar MD Primary Care Provider [phone] Allergies No known active allergies Medications Omeprazole [...] 11/21/2024 Hypomagnesemia 11/21/2024 GERD (gastroesophageal reflux disease) Social History Tobacco Use Types Packs/Day Years Used Date Smoking Tobacco: Never Smokeless Tobacco: Never Alcohol Use Standard Drinks/Week Comments No 0 (1 standard drink = 0.6 oz pur e alcohol) [facility] Utilities Answer Date Recorded In the past 12 months has [employer], gas, oil, or water [employer] threatened to shut off services in your [...] any time in the past [address] [facility], were you homeless or living in a care home (including now)? Patient declined 11/21/2024 Sex and Gender Information Value Date Recorded Sex Assigned at Not on file Legal Sex Male 10:39 PM CDT Gender Identity Not on file Sexual Orientation Not on file Last Filed Vital Signs Vital Sign Reading Time Taken Comments Blood Pressure 153/84 02/21/2025 10:05 PM CDT Pulse 88 02/21/2025 10:05 PM CDT Temperature 37 C (98.6 F) 02/21/2025 10:05 PM CDT Respiratory Rate 16 02/21/2025 10:0 5 PM CDT Oxygen Saturation 99% 02/21/2025 10: 05 PM CDT Inhaled Oxygen Concentration - - Weight 117.1 kg (258 lb 2.5 oz) 02/21/2025 9:22 PM CDT Height 195.6 cm (6' 5) 02/21/2025 9:22 PM CDT Body Mass Index 30.61 02/21/2025 9:22 PM CDT Plan of Treatment Health Maintenance Due Date Last Done Comments Diabetes: Eye Exam 1977 Diabetes: Foot Exam 1977 Hepatitis C Virus (HCV) Screening 1977 TdaP Immunization 1977 Hepatitis B Immunization (1 of 3 - 19+ 3-dose series) 1996 Pneumococcal Immunization Combined (1 of 2 - PCV) 1996 Cologuard 2022 Colonoscopy 2022 Colorectal Cancer Screening 2022 Immunochemical Fecal Occult Blood 2022 Influenza Immunization (#1) 2025 SARS-COV-2 Immunization ( season) 2025 Diabetes: Hemoglobin A1c 07/02/202512/31/2 025, 11/21/2024, 05/26/2024, Additional history exists Diabetes: Nephropathy Screening 11/28/2025 11/28/2024, 11/20/2024, 11/20/2024, Additional history exists Respiratory Syncytial Virus (RSV) Immunization (Adult) (1 - 1-dose 75+ series) 2052 Human Papillomavirus (HPV) Immunization (No Doses Required) Completed Meningococcal Immunization (ACWY) Aged Out No longer eligible based on patient's age to complete this topic Rotavirus Immunization Aged Out No lo nger eligible based on patient's age to complete this topic Procedures Procedure Name Priority Date/Time Associated Diagnosis Comments CMP (COMPREHENSIVE METABOLIC PANEL) STAT 11/28/2024 9:35 AM CDT HEMOGLOBIN A1C W/ ESTIMATED GLUCOSE STAT 11/21/2024 3:34 AM CDT from Last 3 Months or Most Recently Relevant to Health Maintenance Results * (ABNORMAL) Comprehensive Metabolic Panel (Cmp) [id number] (11/28/2024 9:35 AM CDT) SODIUM 136 136 - 145 mmol/L 11/28/2024 10:13 AM CDT [facility] POTASSIUM 4.4 3.5 - 5.1 mmol/L 11/28/2024 10:13 AM CDT [facility] CHLORIDE 104 98 - 107 mmol/L 11/28/2024 10:13 AM CDT [facility] CO2, VENOUS 22 22 - 30 mmol/L 11/28/2024 10:13 AM CDT [facility] ANION GAP 14.4 <18.0 mmol/L 11/28/2024 10:13 AM [facility] GLUCOSE 308(H) 70 - 99 mg/dL 11/28/2024 10:13 AM [facility] BUN 10 9 - 21 mg/dL 11/28/2024 10:13 AM [facility] CREATININE, BLOOD 0.84 0.70 - 1.30 mg/dL 11/28/2024 10:13 AM [facility] BUN/CREATININE RATIO 12 12 - 20 ratio 11/28/2024 10:13 AM [facility] TOTAL PROTEIN 6.6 6.0 - 8.0 g/dL 11/28/2024 10:13 AM [facility] ALBUMIN 3.7 3.5 - 5.0 g/dL 11/28/2024 10:13 AM [facility] A/G RATIO 1.3 1.0 - 2.2 11/28/2024 10:13 AM [facility] CALCIUM 8.7 8.7 - 10.5 mg/dL 11/28/2024 10:13 AM [facility] T BILI 0.5 0.2 - 1.2 mg/dL 11/28/2024 10:13 AM [facility] SGOT (AST) 18 <43 U/L 11/28/2024 10:13 AM [facility] SGPT (ALT) 26 <56 U/L 11/28/2024 10:13 AM [facility] ALKALINE PHOSPHATASE 38(L) 40 - 150 U/L 11/28/2024 10:13 AM [facility] GFR, ESTIMATED >60 >=60 11/28/2024 10:13 AM [facility] Comment: Creatinine Clearance is the preferred criteria for selecting drug dose adjustments in renally impaired patients. The GFR is provided as additional pertinent clinical information. GFR is reported in mL/min/1.73 sq m. Calculation based on the Chronic Kidney Disease Epidemiology Collaboration (CKD- EPI) equation refit without adjustment for race. GFR, EST. >60 >=60 025 10:13 AM CDT [facility] GFR, EST. NONAFRICAN >60 >=60 11/28/2024 10:13 AM CDT [facility] Blood Venipuncture / Unknown 11/28/2024 9:35 AM CDT 11/28/2024 9:50 AM CDT us Naveed Hendricks MD CHEMISTRY ORDERABLES Final Result Performing Organization Address [facility] Co de Phone Number [facility] [address] [place] [address] * (ABNORMAL) Hemoglobin A1C (11/21/2024 3:34 AM CDT) HGB-A1C 13.1(H) 4.0 - 6.0 % 11/21/2024 4:11 AM CDT [facility] Est Average Glucose 329.3 mg/dL 11/21/2024 4:11 AM CDT [facility] Blood Venipuncture / Unknown 11/21/2024 3:34 AM CDT 11/21/2024 3:46 AM CDT Narrative [facility] - 11/21/2024 4:11 AM CDT HEMOGLOBIN A1C: DIABETIC PATIENTS: WELL-CONTROLLED: 6.2 - 7.0 INTERMEDIATE WELL-CONTROLLED: 7.0 - 9.0 POORLY-CONTROLLED: >9.0 Specimens containing greater than 5% of Hemoglobin F may result in lower than expected % HbA1C results. us John Henry MD CHEMISTRY ORDERABLES Machelle l Result Performing Organization Address City/[facility]/ZIP Co de Phone Number [facility] [address] [place] [address] from Last 3 Months or Most Recently Relevant to Health Maintenance Insurance [facility] [place] [id number] [facility] Advance Directives * Full Code (Latest Code Status on File) Date Activated Date Inactivated Comments 11/21/2024 6:29 AM CPR-Full Treatm ent: FULL ARREST: Attempt Resuscitation/CPR wit intubation and mechanical ventilation. PRE-ARREST: Use entire range of life support measures to stabilize the patient. Care Teams Director Internal Communications Relationship Specialty [place] [address] [facility] [place] [address] PCP - General Internal Medicine 07/03/18
== END 2025-08-31 17:26 | disposition home or self-care (01) ==
PROVIDERS: Emergency Provider Nurse Practitioner
DX: S05.01XA Injury of conjunctiva and corneal abrasion without foreign body, right eye, initial encounter (principal); X58.XXXA Exposure to other specified factors, initial encounter; R22.42 Localized swelling, mass and lump, left lower limb; E11.9 Type 2 diabetes mellitus without complications; Z79.84 Long term (current) use of oral hypoglycemic drugs
CPT/HCPCS: 99213; A9270; G0463